=== PATIENT | male | born 1955 | race Caucasian/White ===

== ENCOUNTER 2023-01-15 12:20 | Inpatient (IN) | payer MEDICARE, MEDICAID, SELFPAY ==
[2023-01-10 15:20] VITALS: BMI 28.6
--- NOTE | 2023-01-15 06:00 | DI.RAD.S_ITS ---
PROCEDURE: XR PELVIS 1-2V INDICATIONS: prosthesis placement TECHNIQUE: 1 view of the lower pelvis acquired. COMPARISON: [facility], CR, XR PELVIS WITH BILATERAL LATERAL HIPS, 11/02/2022, 14:42. [facility], CR, XR HIP W PEL IF DONE RT 2V, 01/15/2023, 18:01. FINDINGS: Bones: Patient is status post temporary right hip arthroplasty, with hardware components in expected positions. The hip joint appears congruent. The visualized bony structures appear intact. Soft tissues: Overlying postoperative changes are noted. No suspicious soft tissue densities. IMPRESSION: Expected appearance of the temporary right hip arthroplasty. Dictated by: Anastacio Law M.D. on 01/16/2023 at 8:42 Approved by: Anastacio Law M.D. on 01/16/2023 at 8:44
[2023-01-15] MEDS: ACETAMINOPHEN 325 MG TABLET 975 MG PO (12:51)
[2023-01-15] MEDS: CELECOXIB 200 MG CAPSULE PO (12:51)
[2023-01-15] MEDS: PREGABALIN 75 MG CAPSULE PO (12:52)
[2023-01-15 13:03] VITALS: BMI 28.6
[2023-01-15 13:15] LABS: COVID19 -Nasal RAPID Negative (Negative)
[2023-01-15] MEDS: ALBUTEROL/IPRATROPIUM 3 ML AMPUL INH (13:18)
[2023-01-15] MEDS: MIDAZOLAM 2 MG/2 ML VIAL (13:18)
[2023-01-15 13:20] VITALS: BP 177/106; PULSE 98; RESP 22; TEMP 36.6; O2SAT 98
[2023-01-15] MEDS: VANCOMYCIN 1,000 MG/200 ML PIGGYBACK 200 MG IV (13:57)
[2023-01-15] MEDS: LACTATED RINGERS 1,000 ML 42 ML IV ×2 (14:00→16:23)
--- NOTE | 2023-01-15 14:44 | SUR.OPER ---
Lateral on padded OR bed. Gel axillary roll. Arms secured on padded armboard with pillow supporting top arm. Padded hip positioner braces x4 - anterior and posterior chest and pelvis. Additional gel pad used anterior pelvis. Gel pad under bottom leg from knee to foot and secured with tape over sheet.
--- NOTE | 2023-01-15 15:04 | PM.PREOP ---
Pre-operative Note COVID-19 COVID-19 status: Negative Interval Note History & Physical reviewed/Exam performed by Physician: Yes Changes to H&P: No
[2023-01-15] MEDS: CEFAZOLIN 2 GM/100 ML PREMIX 100 ML IV ×2 (15:15→23:24)
[2023-01-15] MEDS: TRANEXAMIC ACID 1,000 MG VIAL 1000 MG INJ ×2 (15:30→17:25)
--- NOTE | 2023-01-15 15:32 | CM.IDA ---
Initial DCP Assessment Patient is 67 y/o male who presents to PACU for scheduled right total hip arthoplasty with Dr. Arnold. Per EMR, patient has reported complaints of left wrist and hand pain, patient has hx of injuries in lumbar spine and hip. Patient has hx of anoxic Brain injury. Patient's PCP is Dr. Navjot Cheney, Patient has [facility] MCR and Medicaid insurance. Patient has hx of Arthritis, COPD, Depression, Hypertension, Scoliosis, AFib, Anoxic brain injury, drug abuse and CAD RETORT FURNACE OPERATOR enters PACU per Dr. Arnold's request prior to surgery to meet with patient and patient's guardian. Present in PACU is patient and guardian Bhumi Valentin (Ph. # [phone]) Patient presents as A/Ox3, endorsing pain and anticipating surgery. It is reported that patient resides at [facility] in [place]. Contracts Advisor at [facility] is Rissa and can be reached at (Ph. # [phone]). It is reported that patient has been requiring a wheelchair for the last year but owns a FWW. Patient receives assistance with cleaning, medication, showering and laundry. RETORT FURNACE OPERATOR requests for documentation for EMR regarding patient's guardianship records, Bhumi reports she has records on her phone and can email them. RETORT FURNACE OPERATOR informs DCP, DCP to call guardian tomorrow. Guardian preference is SNF rehab in [place], with first choice of [facility] rehab. If HH is recommended preference is [facility]. RETORT FURNACE OPERATOR reviews this with Dr. Arnold, she indicates that patient will most likely requiring SNF rehab after PT/OT eval. Plan: Patient pending surgery with Dr. Arnold, patient to be admitted to room 210, pending OT/PT eval, plan SNF rehab in [facility] vs. [facility] with HH. F/u with Guardian and [facility]. ALLYSON Villanueva Discharge Planning/Care Management CM Discharge Assessment Start: 01/15/23 15:26 Freq: Status: Active Protocol: Document 01/15/23 15:26 LN (Rec: 01/15/23 15:31 LN [id number]) Discharge Planning Assessment Assigned Field Care Coordinator ALLYSON Barraza DPOA/Assigned Designee Name Guardian- Bhumi Valentin Contact Information [phone] Advance Directives? No History Provided By Patient,Medical Record Has Patient been admitted in last 30 No days? Prior Living Arrangements Assisted Living Household Members none Type of transportation used prior to Relies on Others admit Facility Name Admitted From: [place] Willing to Return to Facility? Yes: if PT recommends HH Independent with ADL's No Is patient alert and oriented? Yes Needs Assistance With Bathing,Managing Medications, Home Chores / Shopping DME Already Rented / Owned Wheelchair,FWW / Walker Comment Patient has primarily used wheelchair in the last year Patient/Family Preference [facility] Comment Primary preference SNF rehabs in [place], 1st choice is [facility]. If HH is recommended, preference is [facility]. Discharge Plan [facility] SNF/HH Preference [facility] in [facility] or any SNF rehab in [facility] Review Status In Process Please Provide Date Initial DC 01/15/23 Assessment Was Performed Pre-Anesthesia Assessment Start: 01/10/23 15:20 Freq: Status: Active Protocol: Document 01/10/23 15:20 CAB (Rec: 01/10/23 15:26 CAB [id number]) Pre-Anesthesia Assessment Patient Information Reviewed Via Chart Review Diagnostic Results BMP/CMP,CBC Comment Outside labs 01/11/23 Primary Care Provider Navjot Cheney Comment PCP clearance form 10/22/22 and visit 01/11/23 scanned Medical Clearance Received Yes Seen Specialist in Last 12 Months Yes Specialist Seen Orthopedist,Sleep specialist Comment Sleep visit 10/16/22 scanne Primary Language Serbian Engineering Operations Leader Required No Height 170.18 cm Weight 83.007 kg Body Mass Index (BMI) 28.6 Barriers to Learning Developmental delay Anesthesia Review Requested Yes: Surgeon requested re: Multiple medical problems Alcohol Intake Frequency Other: None Smoking Status Former smoker how long ago did patient quit smoking Quit approx 10 years ago Pain Present Pain Reported Musculoskeletal Symptoms Joint Pain Patient is completely paralyzed or No completely immobile Mental Status Oriented to own ability Currently Taking a Beta [place] Yes: Metoprolol Anti-Coagulant Therapy Yes: Xarelto-advised to hold 5 days per nurse @ living facility per surgeon Hx Pacemaker/ICD No Pacemaker Rep Required? No Urinary Catheter Present No Hx Urinary Self Catheterization No Diabetes No HgbA1C 5.8 Date 10/30/22 Marital Status Single Current Living Arrangements Assisted Living Comment [facility] Caregiver,Other Patient Discharge Plan Description [facility]/Rehab
[2023-01-15] MEDS: BUPIVACAINE 0.25% (PF) 60 ML, EPINEPHrine 0.3 MG INJ (15:50)
[2023-01-15] MEDS: BUPIVACAINE LIPOSOME 266 MG/20 ML VIAL INJ (15:51)
--- NOTE | 2023-01-15 17:53 | P.OP_ITS ---
Operative Date/Time/Diagnoses Date of procedure: 01/15/23 Time of procedure: 15:30 Pre-op diagnosis: Severe right hip AVN Post-op diagnosis: same Procedure & Clinicians Procedure: Right total hip arthroplasty, posterior Same procedure as scheduled: Yes Indications: The patient has had progressively worsening right hip pain with radiographic changes consistent with arthritis. Non-operative management has failed and the patient has requested total hip replacement. The risks, benefits and alternatives to surgery were discussed with the patient prior to proceeding. Risks discussed included, but were not limited to, failure to relieve pain, leg length discrepancy, dislocation, stiffness, infection, nerve damage, deep venous thrombosis, pulmonary embolism, stroke, coma, heart attack, permanent paralysis and , as well as the potential need for eventual revision of the prosthetic. Surgeon: Alexus Arnold Advanced Practice Nurse Psychotherapist: Daphney Espinosa Anesthesia Type: General and Spinal Operative Notes Findings: Severe left hip AVN, various soft acetabulum, significant hip flexion contracture preoperatively, adequate stability Closure Type: primary Specimen(s): none sent Prosthetic devices, grafts, tissues, transplants, or devices: Arnold and nephew size 60 R3 cup, neutral poly liner for 40 mm head, size 16 synergy high offset, 40 +0 Oxinium femoral head,two 6.5 mm screws Blood products transfused: none Procedure in detail: The patient was seen in the pre-operative area, where the patient identified the right hip as the operative site and this was marked with my initials. The patient received pre-operative antibiotics and was taken to the operating room and placed on the operative table in the left lateral decubitus position after satisfactory anesthesia. A cash specialist out was performed. The right leg was prepared from the ankle to the iliac crest with ChloroPrep in the usual fashion and draped through sterile drapes. The hip was approached through an approximately 20 cm incision centered over the greater trochanter and curving gently posteriorly as it went proximally. This was carried sharply to the fascia eladio, which was divided and retracted with a self retaining retractor. The trochanteric bursa was excised with care being taken to avoid the sciatic nerve, which was identified and protected throughout the case. The short external rotators were incised and the capsulomuscular flap was raised and tagged for later repair. The hip was dislocated, and a femoral neck osteotomy performed approximately 15 mm above the lesser trochanter. Retractors were placed around the femur. The canal was opened with a box cutting osteotome, followed by a T handled reamer and a lateralizing reamer. The chili pepper broach was then used, followed by sequential broaching until there was stability of the broach in the femur. He had a large canal in the AP plane. We did have also the anthology a and the Synergy available. Retractors were placed to expose the acetabulum. The labrum and central soft tissues were removed. Reaming was performed initially going up in 2 mm increments, then 1 mm increments until good bite was obtained with an odd sized reamer. The cup 1 mm larger than the last reamer was then inserted using the appropriate anteversion guides. It was further stabilized with 2 screws. A trial neutral liner was placed. The broach was placed in the canal. A trial head and neck were then placed and the hip relocated and checked for leg length and stability. An intraoperative film confirmed the component position and no evidence of fracture. The patient was stable in the position of sleep, of squatting, and could be put through a range of motion with 45 degrees internal rotation without dislocation. I checked the stability of the broach. It had no rotational stability. It did have some axial stability. I then looked at going up a size or 2 with the anthology a. I was able to go up 2 sizes with the anthology a but it still did not have good rotational stability. He had fairly poor quality bone. I thought we should probably switch to the Synergy. We then carefully reamed up with a Synergy and eventually got in a 16 mm stem. He had a very tight hip and significant synovitis and some instability. I did trial reduction with standard offset, extended offset with a 0 and with a +4. We were able to achieve good stability with extended offset. At 90 degrees flexion, internal rotation to 80? was possible before dislocation. This was felt to be satisfactory and the appropriate components were opened, and the trials were removed. The acetabular liner was impacted into position. The final stem was then impacted into the prepared femoral canal. A brief Betadine soak was performed while trialing with head options. The hip was meticulously irrigated with normal saline. Finally the femoral head was impacted onto the stem. The acetabulum was cleared of all material and the hip relocated one final time. The capsulomuscular flap was then repaired to the greater trochanter though an awl hole using the tag sutures. The short external rotators were repaired with a nonabsorbable suture. The fascia eladio was closed with Vicryl. The subcutaneous layer was closed with barbed sutures and SteriStrips. A Catalino dressing was applied and the patient was taken to recovery having tolerated the procedure well. Complications: none Post-operative Condition: stable Disposition: Acute Care Plan for aftercare: The patient will be maintained on a standard total hip replacement protocol with weight bearing as tolerated and posterior hip precautions. The patient will receive Xarelto and sequential compression devices for DVT prophylaxis. The patient will be discharged home when safe for the home environment.
[2023-01-15 18:00] VITALS: BP 127/80; PULSE 93; RESP 21; TEMP 36.3; O2SAT 94
--- NOTE | 2023-01-15 18:00 | DI.RAD.S_ITS ---
PROCEDURE: XR HIP W PEL IF DONE RT 2V INDICATIONS: RIGHT TOTAL HIP TECHNIQUE: AP pelvis and lateral view of the right hip acquired. COMPARISON: [facility], [facility], XR PELVIS 1-2V, 01/15/2023, 16:27. FINDINGS: Bones: Patient is status post right hip arthroplasty, with hardware components in expected positions. The hip joint appears congruent. The visualized bony structures appear intact. Soft tissues: Overlying postoperative changes are noted. No suspicious soft tissue densities. IMPRESSION: Status post right hip arthroplasty. Dictated by: Mary Kay Roblero M.D. on 01/16/2023 at 9:05 Approved by: Mary Kay Roblero M.D. on 01/16/2023 at 9:05
[2023-01-15 18:05] VITALS: BP 111/81; PULSE 94; RESP 22; TEMP 37.1; O2SAT 94
[2023-01-15 18:11] VITALS: BP 120/71; PULSE 94; RESP 20; TEMP 37.1; O2SAT 93
[2023-01-15] MEDS: OXYCODONE/ACETAMINOPHEN 5/325 TABLET 1 TAB PO ×2 (18:16→23:25)
[2023-01-15 18:20] VITALS: BP 129/86; PULSE 90; RESP 14; TEMP 36.9; O2SAT 94
[2023-01-15 18:45] VITALS: BMI 28.6
[2023-01-15] MEDS: LACTATED RINGERS 1,000 ML 100 ML IV (19:32)
[2023-01-15] MEDS: ACETAMINOPHEN 325 MG TABLET 650 MG PO (19:42)
[2023-01-15] MEDS: IBUPROFEN 400 MG TABLET PO ×2 (19:42→23:25)
[2023-01-15 20:52] VITALS: BP 131/83; PULSE 85; RESP 19; TEMP 36.6; O2SAT 93
[2023-01-15] MEDS: DOCUSATE 100 MG CAPSULE PO (21:16)
[2023-01-15] MEDS: ALBUTEROL 2.5 MG/3 ML NEB (ADULT) INH (22:58)
[2023-01-15] MEDS: diphenhydrAMINE 50 MG/ML VIAL 25 MG IV (23:24)
[2023-01-16] VITALS (7 sets, daily range): BP systolic 125–142; BP diastolic 80–89; PULSE 86–104; RESP 18–22; TEMP 36.2–37.3; O2SAT 93–98
[2023-01-16] MEDS: ACETAMINOPHEN 325 MG TABLET 650 MG PO ×3 (01:42→18:11)
[2023-01-16] MEDS: IBUPROFEN 400 MG TABLET PO ×5 (03:43→18:11)
[2023-01-16] MEDS: ALBUTEROL 2.5 MG/3 ML NEB (ADULT) INH (03:47)
[2023-01-16] MEDS: diphenhydrAMINE 50 MG/ML VIAL 25 MG IV ×2 (03:48→18:57)
[2023-01-16] MEDS: OXYCODONE/ACETAMINOPHEN 5/325 TABLET 1 TAB PO (05:59)
[2023-01-16] MEDS: CEFAZOLIN 2 GM/100 ML PREMIX 100 ML IV (06:26)
[2023-01-16 06:29] LABS: Hematocrit 38.1 % (41-53); Hemoglobin 13.1 g/dL (13.5-17.5)
--- NOTE | 2023-01-16 06:47 | P.PN_ITS ---
Subjective Subjective Date Patient Seen: 01/16/23 Time Patient Seen: 06:47 Interval history: Sitting up in bed, good pain control, complaining mostly about left hand pain. Eating and voiding without difficulty. Has not yet been evaluated by PT. Exam Vital Signs (past 8 hours): - 01/16/23 01:47 01/16/23 03:14 01/16/23 03:28 Temperature 97.7 F 97.1 F L Pulse Rate 88 95 H Respiratory Rate 22 20 Blood Pressure 134/89 142/85 H Pulse Oximetry 96 95 Oxygen Delivery Method Nasal Cannula Oxygen Flow Rate 2 Fraction of Inspired Oxygen 01/16/23 03:47 Temperature Pulse Rate 86 Respiratory Rate 22 Blood Pressure Pulse Oximetry 98 Oxygen Delivery Method Nasal Cannula Oxygen Flow Rate 2 Fraction of Inspired Oxygen 28 Fraction of Inspired Oxygen 28 SaO2/FiO2 Ratio 350 Oxygen Delivery Method Nasal Cannula Oxygen Flow Rate 2 Narrative Exam Narrative: 5/5 strength in hip flexors, quadriceps, hamstrings, DF, PF, EHL on right. Sensation to light touch intact throughout RLE. Calf soft, compressible, nontender and without palpable cords or masses. Objective Labs 01/16/23 06:16 Labs: Laboratory Results - last 24 hr 01/15/23 01/16/23 13:00 06:16 Hgb 13.1 L Hct 38.1 L SARS-CoV-2 (PCR) Negative [facility] Medical History (Updated 01/16/23 @ 07:49 by Breana Woods PA-C) Anoxic brain damage Asthma Atrial fibrillation and flutter CAD (coronary artery disease) COPD (chronic obstructive pulmonary disease) GERD (gastroesophageal reflux disease) History of developmental delay HLD (hyperlipidemia) HTN (hypertension) Melena Osteoarthritis PAF (paroxysmal atrial fibrillation) Proctocolitis (11/2022) Suspected sleep apnea TBI (traumatic brain injury) Surgical History (Updated 01/16/23 @ 07:46 by Breana Woods PA-C) History of nasal surgery Hx of hernia repair Social History household members: none Smoking Status: Former smoker alcohol intake: never Assessment & Plan Post-op Assessment and plan (1) S/P total hip arthroplasty: Assessment and Plan narrative: 1) Pt chronically anticoagulated w/ Xarelto d/t a fib; this has been scheduled to restart on 01/18/2023. This should be adequate for postop VTE prophylaxis. 2) PT to eval and treat. 3) H/o anoxic brain injury, resides at an assisted living facility. Will require SNF placement. (2) Acute postoperative anemia due to expected blood loss: Assessment and Plan narrative: Asymptomatic, no intervention needed at this time. Postoperative Procedures: Procedures Operation Date: 01/15/23 14:15 Actual Procedure Side Surgeon p Total Hip Arthroplasty Right Alexus Arnold MD Postoperative day: 1 Quality VTE Deep Vein Thrombosis/Pulmonary Embolism Present on Admission: No
[2023-01-16] MEDS: ALBUTEROL/IPRATROPIUM 3 ML AMPUL INH ×3 (07:30→20:13)
[2023-01-16] MEDS: BUDESONIDE 0.5 MG/2 ML NEB INH ×2 (07:30→20:13)
[2023-01-16] MEDS: DOCUSATE 100 MG CAPSULE PO ×2 (08:41→21:12)
[2023-01-16] MEDS: OXYCODONE IR 5 MG TABLET PO ×2 (08:41→12:46)
--- NOTE | 2023-01-16 11:19 | CM.DPC ---
Addendum entered by Rhoda Hickey R.N. 01/16/23 15:16: Faxed over referrals to [facility] as well, as no response from other facilities as of yet. Guardian has not yet called back. She may have already been in contact with [facility]. P.T. does feel that patient would benefit from group home before returning to his assisted living facility. Addendum entered by Rhoda Hickey R.N. 01/16/23 14:09: Spoke to Patrick, he and , Bhumi, are patient's guardian. Let him know that it is not certain that patient can go to [facility], they have been left several messages, no response. He indicated that Bhumi is having minor surgery today, but will call back. Will also need to see if she can fax over guardian paperwork. Faxed referrals over to [facility], [facility], and [facility]. Other option would be to see if he can return to his assisted living facility Original Note: DCP Cont: SIRI Barraza, had performed initial assessment. Confirmed that this patient resides in [facility]. Dr. Arnold had stopped by this office yesterday, confirmed that there is a guardian involved, was with patient yesterday. Christi, confirmed that guardian was hopeful for [facility] in [place]. Patient has not yet worked with P.T, would need notes in order to send, since auth would be needed. Patient has history of anoxic brain injury, lumbar spine and hip. Called [facility], left a message with Oksana in admissions, asked her to call back, regarding bed availability, and if they are contracted with insurance. Called and left messages also with: [facility]: message [facility]: message [facility]: message [facility]: message. [facility]: they are in stop placement [place]: will call back to see if male bed is available. Did not yet send referrals, wanted to confirm bed availability and if they are contracted with insurance. P: DCP to continue to follow. Working on DC plan, to see availabilities, will follow up. Will see how patient does with P.T. Rhoda Hickey RN/Russian Language Instructor
--- NOTE | 2023-01-16 12:00 | PT.IIE ---
Addendum entered and electronically signed by Oksana Arnold PT 01/18/23 08:29: Addended to correct diagnosis to s/p R MARIA ALEJANDRA. 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) Unspecified intracranial injury with loss of consciousness status unknown, initial encounter (01/15/23) Presence of unspecified artificial hip joint (01/15/23) Surgery Performed Operation Date: 01/15/23 14:15 Actual Procedures p Total Hip Arthroplasty(Right) - Alexus Arnold MD Surgical History (Last Updated 01/11/23 @ 12:40 by Johanna Peterson, RN) History of nasal surgery Hx of hernia repair Medical History (Last Updated 01/11/23 @ 13:35 by Johanna Peterson RN) Anoxic brain damage Asthma Atrial fibrillation and flutter CAD (coronary artery disease) COPD (chronic obstructive pulmonary disease) GERD (gastroesophageal reflux disease) History of developmental delay HLD (hyperlipidemia) HTN (hypertension) Melena Osteoarthritis PAF (paroxysmal atrial fibrillation) Proctocolitis (11/2022) Suspected sleep apnea TBI (traumatic brain injury) Physical Therapy Inpatient Evaluation/Re-Eval M1 PT/OT-IP Prior Functional Status Start: 01/16/23 11:44 Freq: NEEDED Status: Active Protocol: Document 01/16/23 11:44 ES (Rec: 01/16/23 12:00 ES [id number]) Medical Review Prior Functional Status Medical History Reviewed Yes Communication WFL Mobility and Gait Needed assist for all mobility . Was primarily using w/c, scooting with feet independently, but needed help with transfers. Activities of Daily Living and IADL's Needed assist for all ADL's. Prior Functional Level (Other details) Used urinal mostly, but could transfer to toilet with assist . 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 M2 PT-IP Current Condition Start: 01/16/23 11:44 Freq: NEEDED Status: Active Protocol: Document 01/16/23 11:44 ES (Rec: 01/16/23 12:00 ES [id number]) Physical Therapy Current Condition Current Condition Evaluation Date 01/16/23 Treatment Diagnosis s/p L posterior MARIA ALEJANDRA Onset Date 01/15/23 M3 PT-IP Subjective Start: 01/16/23 11:44 Freq: NEEDED Status: Active Protocol: Document 01/16/23 11:44 ES (Rec: 01/16/23 12:00 ES [id number]) Subjective Physical Therapy Visit Type Type Initial Evaluation Visit Start Time 10:15 Visit Stop Time 11:05 Total Visit Minutes 50 Physical Therapy Visit Comments Patient Comments Patient alert in bed. Agreeable to work with PT. Requested to use urinal. Reported his L knee bothers him and seems swollen. Therapy Pain Assessment Pain When Pain Assessed During Mobility Pain Present Pain Present Pain Reported Location Right Hip Intensity 6 Scale Used Suárez-Ferrer (Faces) Pain Management Techniques Apply Cold,Distraction,Re- positioning M4 PT-IP Mobility and Gait Start: 01/16/23 11:44 Freq: NEEDED Status: Active Protocol: Document 01/16/23 11:44 ES (Rec: 01/16/23 12:00 ES [id number]) PT-Bed Mobility Assessment Supine to Sit Supine to Sit Moderate Assistance Scooting Scooting to Edge of Bed Moderate Assistance PT-Transfer Assessment Sit to and From Stand Sit to and from Stand Moderate Assistance,Use of Upper Extremities Equipment Transfer Assistive Device Gait Belt,Front Wheeled Walker Transfers Transfer Destination Chair Transfer Technique Squat Pivot Transfer Ability Level of Assist Moderate Assistance,Use of Upper Extremities Comments Mobility Comments Performed squat pivot transfer bed to recliner toward L side . Performed sit to stand from recliner with FWW x2 for slade care. Able to stand for slade care with FWW with SBA. Cued for hand placement and for hip precautions. Gait Assessment Comments Gait Comments Did not attempt; patient has been non-ambulatory for >1 year. Will assess for appropriateness for ambulation at future visit. PT-Balance Assessment Sitting Balance and Reactions Static Sitting Balance Ability Good Dynamic Sitting Balance Ability Fair Standing Balance and Reactions Static Standing Balance Ability Fair Dynamic Standing Balance Ability Poor Device Used FWW M5 PT-IP Objective Assessments Start: 01/16/23 11:44 Freq: NEEDED Status: Active Protocol: Document 01/16/23 11:44 ES (Rec: 01/16/23 12:00 ES [id number]) Orientation Orientation/Cognition Level of Alertness Alert Orientation Name,Age,Birthday,Month,Year, Place Language Function Ability No Deficits Noted Safety Awareness Decreased Safety Awareness Memory Description Short Term Impaired Gross Range of Motion Upper Extremity ROM Assessment Within Functional Limits Lower Extremity ROM Assessment Bilaterally Impaired Impairments R hip limited 2/2 precautions. R knee appears to bed contracted to ~20 degrees. B ankle mobility limited. Strength Upper Extremity Strength Assessment Within Functional Limits Lower Extremity Strength Assessment Bilaterally Impaired Comments Strength Comments R LE grossly 3-/5. L LE grossly 4/5. Coordination Assessment Gross Coordination Gross Coordination WNL M6 PT-IP Treatment Start: 01/16/23 11:44 Freq: NEEDED Status: Active Protocol: Document 01/16/23 11:44 ES (Rec: 01/16/23 12:00 ES [id number]) Physical Therapy Treatment Exercises Exercises Ankle Pumps,Gluteal Sets,Quad Sets,Heel Slides Education Education Provided Precautions,Weight Bearing Status,Post-Op Packet,Safety M7 PT-IP Assessment and Plan Start: 01/16/23 11:44 Freq: NEEDED Status: Active Protocol: Document 01/16/23 11:44 ES (Rec: 01/16/23 12:00 ES [id number]) PT Summary Assessment and Plan Potential Rehabilitation Potential Fair Status of Condition at Evaluation Stable Summary Impairments Pain,ROM,Strength,Balance, Cognition,Bed Mobility, Transfers,Gait Assessment Summary Patient is a 67 year old male s/p R MARIA ALEJANDRA who presents with impaired functional mobility due to the above problems. He was able to perform ex's though had difficulty due to weakness. He tolerated bed mobility and transfers with mild increase in pain. He required mod A for mobility, and was not safe to progress ambulation this visit due to increased fall risk. He has been non-ambulatory at baseline for some time. His situation is complicated by presence of learning disability, decreased safety awareness, and impaired memory for following precautions. He will benefit from further skilled therapy to increase safety and independence with mobility. Recommend SNF for rehab due to increased level of care currently required, with the goal of returning to [facility] with higher level of function. Goals Bed Mobility Goal Standby Assistance Transfer Goal Standby Assistance Gait Goal Contact Guard Assistance Gait Distance 50 Other Goals Patient will be able to recall posterior hip precautions without cues. Patient will be able to propel self in w/c with UE's/LE's without breaking hip precautions without cues. Days to Meet Goals 3 Frequency of Treatment Frequency Of Treatment Twice a Day Treatment Plan Physical Therapy Treatment Plan Bed Mobility Training,Transfer Training,Gait Training, Therapeutic Exercise,Balance Retraining,Post Op Education, Discharge Planning,Hot or Cold Pack Other Recommendations and Next Treatment Work on transfers, possible Focus progression to gait with FWW, review precautions and HEP. Precautions Posterior Hip Precautions No Hip Flexion > 90 degrees,No Hip Internal Rotation,No Hip Adduction Weight Bearing Status Weight Bearing Status Weight Bear as Tolerated Recommendations To Nursing Amount of Assist Needed 1 Person Assist Discharge Recommendations PT Discharge Recommendations SNF Rehab Transportation Needs at Discharge Wheelchair/Cabulance
[2023-01-16] MEDS: OXYCODONE IR 10 MG TABLET PO ×3 (15:00→21:12)
--- NOTE | 2023-01-16 15:35 | PT.IPTN ---
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) Unspecified intracranial injury with loss of consciousness status unknown, initial encounter (01/15/23) Presence of unspecified artificial hip joint (01/15/23) Surgery Performed Operation Date: 01/15/23 14:15 Actual Procedures p Total Hip Arthroplasty(Right) - Alexus Aronld MD Physical Therapy Treatment Note M2 PT-IP Current Condition Start: 01/16/23 11:44 Freq: NEEDED Status: Active Protocol: Document 01/16/23 11:44 ES (Rec: 01/16/23 12:00 ES [id number]) Physical Therapy Current Condition Current Condition Evaluation Date 01/16/23 Treatment Diagnosis s/p L posterior MARIA ALEJANDRA Onset Date 01/15/23 M3 PT-IP Subjective Start: 01/16/23 11:44 Freq: NEEDED Status: Active Protocol: Document 01/16/23 16:46 TS (Rec: 01/16/23 17:04 TS [id number]) Subjective Physical Therapy Visit Type Type Treatment Note Visit Start Time 15:35 Visit Stop Time 16:00 Total Visit Minutes 25 Number of EMU FARM WORKER Visits 1 Physical Therapy Visit Comments Patient Comments Pt found resting in chair, reports feeling sore in hip, agreeable to PT session. Therapy Pain Assessment Pain When Pain Assessed During Mobility Pain Present Pain Present Pain Reported M4 PT-IP Mobility and Gait Start: 01/16/23 11:44 Freq: NEEDED Status: Active Protocol: Document 01/16/23 16:46 TS (Rec: 01/16/23 17:04 TS [id number]) PT-Bed Mobility Assessment Sit to Supine Sit to Supine Minimal Assistance PT-Transfer Assessment Equipment Transfer Assistive Device Gait Belt Transfers Transfer Destination Chair Transfer Technique Squat Pivot Transfer Ability Level of Assist Minimal Assistance,Use of Upper Extremities Comments Mobility Comments Pt found resting in chair, agreeable to PT session. Pt recalled 0/3 posterior hip precautions. Pt performed post -op ex ankle pumps, quad sets, glute sets and heel slides. Squat pivot transfer to strong side Janie, provided cues BUE support and sequencing. Sit to supine Janie for LEs into bed, provided cues for handrail assist and maintaining hip precautions. Pt Scooted to [facility] SBA with handrail assist. Pt was left in bed with call light nearby, RN notified. Gait Assessment Comments Gait Comments Did not attempt; patient has been non-ambulatory for >1 year. Will assess for appropriateness for ambulation at future visit. PT-Balance Assessment Sitting Balance and Reactions Static Sitting Balance Ability Good Dynamic Sitting Balance Ability Fair Comments Other Balance Tests/Deviations/Treatment Did not attempt standing this : session. M5 PT-IP Objective Assessments Start: 01/16/23 11:44 Freq: NEEDED Status: Active Protocol: Document 01/16/23 11:44 ES (Rec: 01/16/23 12:00 ES [id number]) Orientation Orientation/Cognition Level of Alertness Alert Orientation Name,Age,Birthday,Month,Year, Place Language Function Ability No Deficits Noted Safety Awareness Decreased Safety Awareness Memory Description Short Term Impaired Gross Range of Motion Upper Extremity ROM Assessment Within Functional Limits Lower Extremity ROM Assessment Bilaterally Impaired Impairments R hip limited 2/2 precautions. R knee appears to bed contracted to ~20 degrees. B ankle mobility limited. Strength Upper Extremity Strength Assessment Within Functional Limits Lower Extremity Strength Assessment Bilaterally Impaired Comments Strength Comments R LE grossly 3-/5. L LE grossly 4/5. Coordination Assessment Gross Coordination Gross Coordination WNL M6 PT-IP Treatment Start: 01/16/23 11:44 Freq: NEEDED Status: Active Protocol: Document 01/16/23 16:46 TS (Rec: 01/16/23 17:04 TS [id number]) Physical Therapy Treatment Exercises Exercises Ankle Pumps,Gluteal Sets,Quad Sets,Heel Slides Education Education Provided Precautions,Weight Bearing Status,Post-Op Packet,Safety Other Treatments Other Treatment Performed Pt needs heavy cueing of precautions, Pt states he will not remember. M7 PT-IP Assessment and Plan Start: 01/16/23 11:44 Freq: NEEDED Status: Active Protocol: Document 01/16/23 16:46 TS (Rec: 01/16/23 17:04 TS [id number]) PT Summary Assessment and Plan Potential Rehabilitation Potential Fair Status of Condition at Evaluation Stable Summary Impairments Pain,ROM,Strength,Balance, Cognition,Bed Mobility, Transfers,Gait Assessment Summary Jakob recalled 0/3 posterior hip precautions prior to session, he requires consistent cueing of hip precautions throughout session and demonstrates decreased safety awareness. He progressed his squat pivot transfer to Janie this session, requires cueing for sequencing. He requires refocusing to stay on task and can follow single step instructions ~90% of the time. PT is recommending SNF at this time to progress bed mobility, transfers and gait. Pt lives in assisted living facility and will need to be more Ind before returning home . Goals Bed Mobility Goal Standby Assistance Transfer Goal Standby Assistance Gait Goal Contact Guard Assistance Gait Distance 50 Other Goals Patient will be able to recall posterior hip precautions without cues. Patient will be able to propel self in w/c with UE's/LE's without breaking hip precautions without cues. Days to Meet Goals 3 Frequency of Treatment Frequency Of Treatment Twice a Day Treatment Plan Physical Therapy Treatment Plan Bed Mobility Training,Transfer Training,Gait Training, Therapeutic Exercise,Balance Retraining,Post Op Education, Discharge Planning,Hot or Cold Pack Other Recommendations and Next Treatment Work on transfers, possible Focus progression to gait with FWW, review precautions and HEP. Precautions Posterior Hip Precautions No Hip Flexion > 90 degrees,No Hip Internal Rotation,No Hip Adduction Weight Bearing Status Weight Bearing Status Weight Bear as Tolerated Recommendations To Nursing Amount of Assist Needed 1 Person Assist Discharge Recommendations PT Discharge Recommendations SNF Rehab Transportation Needs at Discharge Wheelchair/Cabulance
[2023-01-16] MEDS: TRAZODONE 50 MG TABLET PO (21:12)
--- NOTE | 2023-01-16 22:25 | DI.RAD.S_ITS ---
PROCEDURE: XR PELVIS 1-2V INDICATIONS: Confirm placement TECHNIQUE: 1 view of the lower pelvis acquired. COMPARISON: [facility], , XR PELVIS 1-2V, 01/15/2023, 16:27. FINDINGS: Bones: Patient is status post right hip arthroplasty, with hardware components in expected positions. The hip joint appears congruent. Severe degeneration of the left hip redemonstrated with subchondral sclerosis and prominent subchondral cystic changes superiorly in the femoral head. The visualized bony structures appear intact. Soft tissues: Overlying postoperative changes are noted including periarticular soft tissue gas around the right hip. No suspicious soft tissue densities. IMPRESSION: 1. Expected postsurgical changes status post right hip arthroplasty. Dictated by: Brian Bear M.D. on 01/16/2023 at 23:04 Approved by: Brian Bear M.D. on 01/16/2023 at 23:05
[2023-01-16] MEDS: diazePAM 5 MG TABLET PO (22:36)
[2023-01-17] VITALS (11 sets, daily range): BP systolic 84–140; BP diastolic 56–89; PULSE 66–104; RESP 18–22; TEMP 36.1–36.8; O2SAT 20–98
[2023-01-17] MEDS: OXYCODONE IR 10 MG TABLET PO ×4 (00:57→13:08)
[2023-01-17] MEDS: HYDROMORPHONE 0.5 MG INJ IV ×2 (01:40→05:29)
[2023-01-17] MEDS: ACETAMINOPHEN 325 MG TABLET 650 MG PO ×4 (01:40→19:42)
[2023-01-17] MEDS: ALBUTEROL 2.5 MG/3 ML NEB (ADULT) INH ×2 (04:24→22:43)
[2023-01-17] MEDS: IBUPROFEN 400 MG TABLET PO ×5 (05:38→22:27)
--- NOTE | 2023-01-17 06:01 | PC.NURSE ---
~2100 pt reported cramping/pain/burning in r hip/thigh and was unable to fully extend R leg. +1 pitting edema noted in BL feet and ankles. + CMS and +2 pedal pulses distal to op. site. Muscle spasms visible above knee, crepitus palpable around R knee. Applied heat and medicated (see MAR) ~2200 Dr Arnold contacted and hip x-ray obtained, confirming correct placement & 5 mg diazepam ordered (see MAR). Patient was able to sleep for 2-3 hours. ~0100 Pt woke in 8-10 pain. Medicated with 10 mg Oxy (see Mar) and pain was not relieved within the hour, so pt was medicated again with 0.5 mg IV dilaudid (see MAR), feet continue to have +1 pitting edema, + CMS and +2 pedal pulses. Patient especially complaining of the pain bilaterally in his groin, from hip to knee. ~0430 repeated same as above. feet now have +2 pitting edema, + CMS and +2 pedal pulses.
[2023-01-17] MEDS: hydrOXYzine pamoate 25 MG CAPSULE PO ×3 (07:50→22:27)
--- NOTE | 2023-01-17 08:10 | PT.IPTN ---
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) Unspecified intracranial injury with loss of consciousness status unknown, initial encounter (01/15/23) Presence of unspecified artificial hip joint (01/15/23) Surgery Performed Operation Date: 01/15/23 14:15 Actual Procedures p Total Hip Arthroplasty(Right) - Alexus Arnold MD Physical Therapy Treatment Note M2 PT-IP Current Condition Start: 01/16/23 11:44 Freq: NEEDED Status: Active Protocol: Document 01/17/23 07:52 SP (Rec: 01/17/23 11:58 SP [id number]) Physical Therapy Current Condition Current Condition Evaluation Date 01/16/23 Treatment Diagnosis s/p L posterior MARIA ALEJANDRA Onset Date 01/15/23 M3 PT-IP Subjective Start: 01/16/23 11:44 Freq: NEEDED Status: Active Protocol: Document 01/17/23 07:52 SP (Rec: 01/17/23 11:58 SP [id number]) Subjective Physical Therapy Visit Type Type Treatment Note Visit Start Time 07:52 Visit Stop Time 08:10 Total Visit Minutes 18 Notes Pt maintained SaO2 mid 90s. Number of RISK MANAGEMENT MANAGER Visits 2 Physical Therapy Visit Comments Patient Comments Pt willing to work with therapy. C/o R heel burning sensation, reports L hip sore but ok. Therapy Pain Assessment Pain When Pain Assessed At Rest Pain Present Pain Present Pain Reported Location R heel burning Scale Used intense, unable to quantify Description Burning Pain Behaviors Facial Grimacing,Holding Area, Restlessness,Wincing Pain Management Techniques Distraction,Modification of Treatment,Re-positioning, Timing of Activity with Medications M4 PT-IP Mobility and Gait Start: 01/16/23 11:44 Freq: NEEDED Status: Active Protocol: Document 01/17/23 07:52 SP (Rec: 01/17/23 11:58 SP [id number]) PT-Bed Mobility Assessment Supine to Sit Supine to Sit Minimal Assistance,1 Person Assistance,Head of Bed Elevated,Bedrails Scooting Scooting to Edge of Bed Standby Assistance PT-Transfer Assessment Sit to and From Stand Sit to and from Stand Moderate Assistance,1 Person Assistance,Use of Upper Extremities Equipment Transfer Assistive Device Gait Belt,Front Wheeled Walker Transfers Transfer Destination Chair Transfer Technique Stand Pivot Transfer Ability Level of Assist Minimal Assistance,Moderate Assistance,1 Person Assistance ,Use of Upper Extremities Comments Mobility Comments RISK MANAGEMENT MANAGER instructed pt LE post op ex supine and seated in chair: AP, QS and GS 5 reps each, continued cues for understanding performance limited recall, didn't remember performed in bed end tx review. Sup>sit Min A trunk righting and each LE to EOB with skilled cues bed rail support. Scoot EOB SBA. STS Mod A cue push from bed then transition to FWW. Pt decreased RLE stance and demonstrated NWB on R heel during Stand pivot transfer bed> chair/ back fully and reach each UE to chair arms, self mgt FWW with single step cues. Pt reports little pain L hip but is ok but alot burning pain R heel. Pt scoot back fully, elevated BLEs in chair, provided tray, phone, call light and all needs inreach. Discussed with DOOR TRIMMER Min A w/ FWW and 1 step cues, as well as reports R heel burning pain and stated new medication should help. Recommending SNF. Gait Assessment Comments Gait Comments stand pivot only with fww due to R burning heel pain and unable bear wt into. Stable LLE post op hip WB with support BUE on FWW. Unable advance past transfer. Stair Climbing Assessment Comments Stair Climbing Comments no stairs need to assess. PT-Balance Assessment Sitting Balance and Reactions Static Sitting Balance Ability Good Dynamic Sitting Balance Ability Fair Standing Balance and Reactions Static Standing Balance Ability Poor Dynamic Standing Balance Ability Poor Device Used FWW M5 PT-IP Objective Assessments Start: 01/16/23 11:44 Freq: NEEDED Status: Active Protocol: Document 01/16/23 11:44 ES (Rec: 01/16/23 12:00 ES [id number]) Orientation Orientation/Cognition Level of Alertness Alert Orientation Name,Age,Birthday,Month,Year, Place Language Function Ability No Deficits Noted Safety Awareness Decreased Safety Awareness Memory Description Short Term Impaired Gross Range of Motion Upper Extremity ROM Assessment Within Functional Limits Lower Extremity ROM Assessment Bilaterally Impaired Impairments R hip limited 2/2 precautions. R knee appears to bed contracted to ~20 degrees. B ankle mobility limited. Strength Upper Extremity Strength Assessment Within Functional Limits Lower Extremity Strength Assessment Bilaterally Impaired Comments Strength Comments R LE grossly 3-/5. L LE grossly 4/5. Coordination Assessment Gross Coordination Gross Coordination WNL M6 PT-IP Treatment Start: 01/16/23 11:44 Freq: NEEDED Status: Active Protocol: Document 01/17/23 07:52 SP (Rec: 01/17/23 11:58 SP [id number]) Physical Therapy Treatment Exercises Exercises Ankle Pumps,Gluteal Sets,Quad Sets,Supine Hip Abduction Education Education Provided Precautions,Weight Bearing Status,Post-Op Packet,Safety Other Treatments Other Treatment Performed No recall to precautions, requires support for hip abd to EOB each LE due to report R heel pain. M7 PT-IP Assessment and Plan Start: 01/16/23 11:44 Freq: NEEDED Status: Active Protocol: Document 01/17/23 07:52 SP (Rec: 01/17/23 11:58 SP [id number]) PT Summary Assessment and Plan Potential Rehabilitation Potential Fair Status of Condition at Evaluation Stable Summary Impairments Pain,ROM,Strength,Balance, Cognition,Bed Mobility, Transfers,Gait,Activity Tolerance Progress Towards Goals Slow Progress due to Pain,Slow Progress due to Activity Tolerance Assessment Summary Pt recalled 0/3 precautions, R heel burning pain and challenged with bearing weight into RLE this tx limited mobility to stand pivot transfer Mod A w/ FWW. Pt will require SNF for progression strength and independence in mobility. Goals Bed Mobility Goal Standby Assistance Transfer Goal Standby Assistance Gait Goal Contact Guard Assistance Gait Distance 50 Other Goals Patient will be able to recall posterior hip precautions without cues. Patient will be able to propel self in w/c with UE's/LE's without breaking hip precautions without cues. Days to Meet Goals 3 Frequency of Treatment Frequency Of Treatment Twice a Day Treatment Plan Physical Therapy Treatment Plan Bed Mobility Training,Transfer Training,Gait Training, Therapeutic Exercise,Balance Retraining,Post Op Education, Discharge Planning,Hot or Cold Pack Other Recommendations and Next Treatment Progress transfers, gait with Focus FWW, review precautions and HEP. 1 step cues. Precautions Posterior Hip Precautions No Hip Flexion > 90 degrees,No Hip Internal Rotation,No Hip Adduction Weight Bearing Status Weight Bearing Status Weight Bear as Tolerated Recommendations To Nursing Amount of Assist Needed 1 Person Assist Discharge Recommendations PT Discharge Recommendations SNF Rehab Transportation Needs at Discharge Wheelchair/Cabulance
[2023-01-17] MEDS: ALBUTEROL/IPRATROPIUM 3 ML AMPUL INH ×3 (08:19→19:38)
[2023-01-17] MEDS: BUDESONIDE 0.5 MG/2 ML NEB INH ×2 (08:19→19:38)
[2023-01-17] MEDS: GABAPENTIN 300 MG CAPSULE PO ×3 (09:10→22:27)
[2023-01-17] MEDS: METOPROLOL ER 25 MG TABLET PO (09:10)
[2023-01-17] MEDS: FUROSEMIDE 20 MG TABLET PO (09:10)
[2023-01-17] MEDS: lisinopriL 20 MG TABLET PO (09:11)
[2023-01-17] MEDS: DOCUSATE 100 MG CAPSULE PO ×2 (09:15→22:26)
--- NOTE | 2023-01-17 11:12 | PM.PNPO.1 ---
Subjective Subjective Date Patient Seen: 01/17/23 Time Patient Seen: 07:30 Interval history: Patient is lying comfortably in bed this morning. He complains profusely about his right knee spasm, neuropathic pain in bilateral heels, and carpal tunnel syndrome. He is fixated on missing a call from someone. Denies calf tenderness, chest pain, shortness of breath. Exam Vital Signs (past 8 hours): - 01/17/23 06:47 01/17/23 08:19 01/17/23 09:04 Temperature 97.0 F L 97.1 F L Pulse Rate 103 H 104 H 66 Respiratory Rate 18 22 18 Blood Pressure 140/89 139/79 Pulse Oximetry 95 94 98 Oxygen Delivery Method Room Air Oxygen Flow Rate 0 0 0 Fraction of Inspired Oxygen 21 01/17/23 09:10 01/17/23 09:11 Temperature Pulse Rate 66 66 Respiratory Rate Blood Pressure 139/79 139/79 Pulse Oximetry Oxygen Delivery Method Oxygen Flow Rate Fraction of Inspired Oxygen Fraction of Inspired Oxygen 21 SaO2/FiO2 Ratio 447 Oxygen Delivery Method Room Air Oxygen Flow Rate 0 Narrative Exam Narrative: Awake and alert, mentation at baseline. Intraoperative right hip dressing clean, dry, and intact. Strength and sensation intact to bilateral lower extremities. Bilateral calves soft, compressible, nontender with no palpable cords or masses. Bilateral feet with 2+ pitting edema. Right knee with obvious muscle spasm. Objective Labs 01/16/23 06:16 [facility] Medical History Anoxic brain damage Asthma Atrial fibrillation and flutter CAD (coronary artery disease) COPD (chronic obstructive pulmonary disease) GERD (gastroesophageal reflux disease) History of developmental delay HLD (hyperlipidemia) HTN (hypertension) Melena Osteoarthritis PAF (paroxysmal atrial fibrillation) Proctocolitis (11/2022) Suspected sleep apnea TBI (traumatic brain injury) Surgical History History of nasal surgery Hx of hernia repair Social History household members: none Smoking Status: Former smoker alcohol intake: never Assessment & Plan Post-op Postoperative Procedures: Procedures Operation Date: 01/15/23 14:15 Actual Procedure Side Surgeon p Total Hip Arthroplasty Right Alexus Arnold, MD Postoperative day: 2 Postoperative status: doing well and marginal pain control Postoperative status narrative: Patient is progressing as expected after right total hip arthroplasty. He has had trouble with pain control, which is now improved after adding home dose of gabapentin as well as Vistaril for muscle spasm. Patient's home Lasix, lisinopril and metoprolol were also resumed today. Postoperative plan: routine post-op care Postoperative plan narrative: Continue with multimodal pain regimen. Plan to work with physical therapy. Discharge to group home facility once available. Quality VTE Deep Vein Thrombosis/Pulmonary Embolism Present on Admission: No
--- NOTE | 2023-01-17 14:34 | PT.IPTN ---
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) Unspecified intracranial injury with loss of consciousness status unknown, initial encounter (01/15/23) Presence of unspecified artificial hip joint (01/15/23) Surgery Performed Operation Date: 01/15/23 14:15 Actual Procedures p Total Hip Arthroplasty(Right) - Alexus Arnold MD Physical Therapy Treatment Note M2 PT-IP Current Condition Start: 01/16/23 11:44 Freq: NEEDED Status: Active Protocol: Document 01/17/23 07:52 SP (Rec: 01/17/23 11:58 SP [id number]) Physical Therapy Current Condition Current Condition Evaluation Date 01/16/23 Treatment Diagnosis s/p L posterior MARIA ALEJANDRA Onset Date 01/15/23 M3 PT-IP Subjective Start: 01/16/23 11:44 Freq: NEEDED Status: Active Protocol: Document 01/17/23 14:16 KS (Rec: 01/17/23 15:55 KS [id number]) Subjective Physical Therapy Visit Type Type Treatment Note Visit Start Time 14:16 Visit Stop Time 14:34 Total Visit Minutes 18 Number of DISHWASHING MACHINE OPERATOR Visits 3 Physical Therapy Visit Comments Patient Comments Pt req to get back in bed. M4 PT-IP Mobility and Gait Start: 01/16/23 11:44 Freq: NEEDED Status: Active Protocol: Document 01/17/23 14:16 KS (Rec: 01/17/23 15:55 KS [id number]) PT-Bed Mobility Assessment Sit to Supine Sit to Supine Minimal Assistance Scooting Scooting to Edge of Bed Standby Assistance PT-Transfer Assessment Sit to and From Stand Sit to and from Stand Moderate Assistance,1 Person Assistance,Use of Upper Extremities Equipment Transfer Assistive Device Gait Belt,Front Wheeled Walker Transfers Transfer Destination Bed Transfer Technique Stand Step Pivot Transfer Ability Level of Assist Moderate Assistance,1 Person Assistance,Use of Upper Extremities Comments Mobility Comments Pt in chair and req to get back in bed. Mod A for sit<> stand and stand step pivot w/ cues for FWW mgmt. Pt required [place] for LE guidance into bed . Performed ankle pumps, SLR, and heel slides. Left in bed w / all needs in reach. Gait Assessment Comments Gait Comments Unable to progress gait Stair Climbing Assessment Comments Stair Climbing Comments no stairs need to assess. PT-Balance Assessment Sitting Balance and Reactions Static Sitting Balance Ability Good Dynamic Sitting Balance Ability Fair Standing Balance and Reactions Static Standing Balance Ability Poor Dynamic Standing Balance Ability Poor Device Used FWW M5 PT-IP Objective Assessments Start: 01/16/23 11:44 Freq: NEEDED Status: Active Protocol: Document 01/16/23 11:44 ES (Rec: 01/16/23 12:00 ES [id number]) Orientation Orientation/Cognition Level of Alertness Alert Orientation Name,Age,Birthday,Month,Year, Place Language Function Ability No Deficits Noted Safety Awareness Decreased Safety Awareness Memory Description Short Term Impaired Gross Range of Motion Upper Extremity ROM Assessment Within Functional Limits Lower Extremity ROM Assessment Bilaterally Impaired Impairments R hip limited 2/2 precautions. R knee appears to bed contracted to ~20 degrees. B ankle mobility limited. Strength Upper Extremity Strength Assessment Within Functional Limits Lower Extremity Strength Assessment Bilaterally Impaired Comments Strength Comments R LE grossly 3-/5. L LE grossly 4/5. Coordination Assessment Gross Coordination Gross Coordination WNL M6 PT-IP Treatment Start: 01/16/23 11:44 Freq: NEEDED Status: Active Protocol: Document 01/17/23 14:16 KS (Rec: 01/17/23 15:55 KS [id number]) Physical Therapy Treatment Exercises Exercises Ankle Pumps,Heel Slides, Straight Leg Raises Education Education Provided Precautions,Weight Bearing Status,Post-Op Packet,Safety Other Treatments Other Treatment Performed recalled no adduction M7 PT-IP Assessment and Plan Start: 01/16/23 11:44 Freq: NEEDED Status: Active Protocol: Document 01/17/23 14:16 KS (Rec: 01/17/23 15:55 KS [id number]) PT Summary Assessment and Plan Potential Rehabilitation Potential Fair Summary Impairments Pain,ROM,Strength,Balance, Cognition,Bed Mobility, Transfers,Gait,Activity Tolerance Progress Towards Goals Slow Progress due to Pain,Slow Progress due to Activity Tolerance Assessment Summary Pt able to transfer w/ FWW and mod A w/ max cues for FWW use . Poor balance and high fall risk. Will require SNF to improve strength and functional mobility. Goals Bed Mobility Goal Standby Assistance Transfer Goal Standby Assistance Gait Goal Contact Guard Assistance Gait Distance 50 Other Goals Patient will be able to recall posterior hip precautions without cues. Patient will be able to propel self in w/c with UE's/LE's without breaking hip precautions without cues. Days to Meet Goals 3 Frequency of Treatment Frequency Of Treatment Twice a Day Treatment Plan Physical Therapy Treatment Plan Bed Mobility Training,Transfer Training,Gait Training, Therapeutic Exercise,Balance Retraining,Post Op Education, Discharge Planning,Hot or Cold Pack Other Recommendations and Next Treatment Progress transfers, gait with Focus FWW, review precautions and HEP. 1 step cues. Precautions Posterior Hip Precautions No Hip Flexion > 90 degrees,No Hip Internal Rotation,No Hip Adduction Weight Bearing Status Weight Bearing Status Weight Bear as Tolerated Recommendations To Nursing Amount of Assist Needed 1 Person Assist Discharge Recommendations PT Discharge Recommendations SNF Rehab Transportation Needs at Discharge Wheelchair/Cabulance
--- NOTE | 2023-01-17 15:09 | CM.DPC ---
Addendum entered by SIRI Farley 01/17/23 15:54: ADD: Per [facility], unsure if they can accept pt and will keep him on their list but likely would need to decline pt due to already high needs residents at their facility. Pt's PASRR would likely be positive under DD. BF Original Note: DCP SNF Planning Per Ortho, pt making progress and continue to work with PT and OT ordered for today. Per PT, pt able to participate with therapies and able to do bed mobility and stand with walker and take a few steps but some pain in his heal that is limiting his ability to bear weight today which if resolved could improve his mobility. Still recommending SNF. PARVEEN contacted following previously faxed [place] SNFs: [facility]- not contracted, cannot accept [facility]- no beds until maybe next week [facility]- on hold for new admissions at this time [facility]- left 2 messages Hay[facility]- hadn't received referral, confirmed they are contracted with [facility], refaxed to [phone]. PARVEEN then faxed following [facility] SNFs: [facility]- full until next week, maybe Sat or [facility]- not contracted, would be 40% out pocket daily cost [facility]- faxed and they are not sure insurance will auth, waiting to hear if they will try to get auth [facility]- faxed and left msgs SW also called pt's [facility] [phone] and left msg in case SNF unable to be secured and plan for return to their facility is needed. PARVEEN spoke to pt's Guardian Bhumi [phone] and updated on difficulty of finding SNF contracted with pt's insurance that can accept. She confirms her preference would still be [facility] but would be agreeable to [facility] if needed. Plan: SW to follow closely for two [place] SNF reviews and [facility] and [facility] to return call to determine if one can accept and initiate insurance auth. SIRI Farley
--- NOTE | 2023-01-17 16:06 | OT.IP.EVAL ---
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) Unspecified intracranial injury with loss of consciousness status unknown, initial encounter (01/15/23) Presence of unspecified artificial hip joint (01/15/23) Surgery Performed Operation Date: 01/15/23 14:15 Actual Procedures p Total Hip Arthroplasty(Right) - Alexus Arnold MD Past Medical History (Last Reviewed 01/17/23 @ 11:19 by Daphney Espinosa PA-C) Anoxic brain damage Asthma Atrial fibrillation and flutter CAD (coronary artery disease) COPD (chronic obstructive pulmonary disease) GERD (gastroesophageal reflux disease) History of developmental delay HLD (hyperlipidemia) HTN (hypertension) Melena Osteoarthritis PAF (paroxysmal atrial fibrillation) Proctocolitis (11/2022) Suspected sleep apnea TBI (traumatic brain injury) Surgical History (Last Reviewed 01/17/23 @ 11:19 by Daphney Espinosa PA-C) History of nasal surgery Hx of hernia repair Occupational Therapy Inpatient Evaluation/Re-Eval M1 PT/OT-IP Prior Functional Status Start: 01/16/23 11:44 Freq: NEEDED Status: Active Protocol: Document 01/16/23 11:44 ES (Rec: 01/16/23 12:00 ES [id number]) Medical Review Prior Functional Status Medical History Reviewed Yes Communication WFL Mobility and Gait Needed assist for all mobility . Was primarily using w/c, scooting with feet independently, but needed help with transfers. Activities of Daily Living and IADL's Needed assist for all ADL's. Prior Functional Level (Other details) Used urinal mostly, but could transfer to toilet with assist . 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 M1 PT/OT-IP Prior Functional Status Start: 01/17/23 16:52 Freq: NEEDED Status: Active Protocol: Document 01/17/23 15:25 CCC (Rec: 01/17/23 17:19 [facility] [id number]) Medical Review Prior Functional Status Medical History Reviewed Yes Communication WFL Mobility and Gait Needed assist for all mobility . Was primarily using w/c, scooting with feet independently, but needed help with transfers. Activities of Daily Living and IADL's Needed assist for all ADL's. Pt states his facility assists him with toileting , dressing , showering and also getting out of bed. Prior Functional Level (Other details) Used urinal mostly, but could transfer to toilet with assist . 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 M2 OT-IP Current Condition Start: 01/17/23 16:52 Freq: Status: Active Protocol: Document 01/17/23 15:25 [facility] (Rec: 01/17/23 17:19 [facility] [id number]) Occupational Therapy Current Condition Current Condition Evaluation Date 01/17/23 Treatment Diagnosis S/p R MARIA ALEJANDRA Diagnosis Onset Date 01/15/23 Post Operative Precautions Posterior Hip Precautions No Hip Flexion > 90 degrees,No Hip Internal Rotation,No Hip Adduction Weight Bearing Status Weight Bearing Status Weight Bear as Tolerated M3 OT- IP Subjective and Pain Start: 01/17/23 16:52 Freq: Status: Active Protocol: Document 01/17/23 15:25 [facility] (Rec: 01/17/23 17:19 [facility] [id number]) OT- Subjective Occupational Therapy Visit Type Type Initial Evaluation Visit Start Time 15:25 Visit Stop Time 16:06 Total Visit Minutes 41 Occupational Therapy Visit Comments Patient Comments Pt agreed to get up. Patient/Caregiver Goals TO get better. OT Pain Assessment Pain When Pain Assessed At Rest Pain Present Pain Present Pain Reported Location R heel burning Intensity 4 M4 OT- IP ADL's Start: 01/17/23 16:52 Freq: Status: Active Protocol: Document 01/17/23 15:25 [facility] (Rec: 01/17/23 17:19 [facility] [id number]) OT KEC-Vfds-Hqpwiae General Evaluation Self-Feeding Ability Independent Comments OT Self-Feeding Comments Pt needing reminders not to lean too far forwards while eating as pt eating while seated on the edge of the bed. OT ADL-Grooming Comments OT Grooming Comments Not performed. OT ADL-Oral Care Comments Oral Care Comments Not performed. OT ADL-Dressing General Eval Lower Body Dressing Ability Maximum Assistance Comments OT Dressing Comments Pt will need MAX A for all LB dressing needs. OT ADL-Toileting General Evaluation Toileting Ability Standby Assistance,Maximum Assistance Comments OT Toileting Comments Pt able to hold urinal in place and SBA for set-up for wash cloth afterwards. Pt will needing assist for hygiene and clothing management needs after bowel movement. OT ADL-Bathing Comments OT Bathing Comments Pt states his facility takes him to the shower room. M5 OT- IP IADL's Start: 01/17/23 16:52 Freq: Status: Active Protocol: Document 01/17/23 15:25 [facility] (Rec: 01/17/23 17:19 [facility] [id number]) OT-Instrumental Activities of Daily Living Home Safety Awareness Awareness of Need for Assistance at Home Decreased Awareness Home Safety Comments Pt needing increased time to process and follow directions and unable to recall his hip precautions. Medication Management Medication Management Caregiver Administers Money Management Money Management Caregiver Provides Assistance Meal Preparation Meal Preparation Caregiver Provides Assist Human Factors Specialist Human Factors Specialist Caregiver Provides Assist M6 OT- IP Functional Cognition Start: 01/17/23 16:52 Freq: Status: Active Protocol: Document 01/17/23 15:25 [facility] (Rec: 01/17/23 17:19 [facility] [id number]) Cognitive Factors Limiting Selfcare Function Cognitive Ability Level of Alertness Alert Patient Orientation Name,Place,Situation Attention Span Ability Capable of Focused Attention, Capable of Sustained Attention Ability to Follow Commands Able to Follow One Step Commands with Increased Time, Able to Follow One Step Commands with Repetition Memory Description Short Term Impaired Safety Awareness Decreased Recall of Precautions,Decreased Ability to Apply Precautions, Underestimates Need for Assistance Cognitive Comments Cognitive Assessment Comments Pt needing continuous vc to follow his hip precautions as he is very forgetful during all ADl and mobility needs. OT- Vision and Hearing OT- Hearing Assessment OT- Hearing Assessment WFL M7 OT- IP Mobility and Balance Start: 01/17/23 16:52 Freq: Status: Active Protocol: Document 01/17/23 15:25 [facility] (Rec: 01/17/23 17:19 [facility] [id number]) OT- Bed Mobility Assessment Supine to Sit Supine to Sit Assist Moderate Assistance Sit to Supine Sit to Supine Assist Maximum Assistance Scooting Scooting to Edge of Bed Maximum Assistance OT-Transfer Assessment Sit to and From Stand Sit to and from Stand Moderate Assistance Comments Mobility Comments MODA to MAXA to help move his RLE to the edge of the bed and back into bed and to be sure that pt was not leaning forwards to far. Pt able to stand MODA X1 to FWW and take a few side steps to the head of the bed and heavy use of BUE on the FWW and MOD/MAXA. OT- Balance Assessment Sitting Balance and Reactions Static Sitting Balance Ability Good Dynamic Sitting Balance Ability Fair Standing Balance and Reactions Static Standing Balance Ability Poor Dynamic Standing Balance Ability Poor Comments Other Balance Tests/Deviations/Treatment Pt able to sit at edge of bed : well , decreased balance whiel standing on his feet. M8 OT- IP Objective Assessments Start: 01/17/23 16:52 Freq: Status: Active Protocol: Document 01/17/23 15:25 [facility] (Rec: 01/17/23 17:19 [facility] [id number]) OT-Muscle Tone Assessment Comments Muscle Tone Comments Noted Right LE spasms, able to notify nursing in addition to pt's complaining of having a itchy back. M9 OT- IP Assessment and Plan Start: 01/17/23 16:52 Freq: Status: Active Protocol: Document 01/17/23 15:25 [facility] (Rec: 01/17/23 17:19 [facility] [id number]) OT Summary Assessment and Plan Potential Rehabilitation Potential Good Analytic Complexity at Evaluation Low Summary OT Impairments Pain,Strength,Balance, Functional Cognition, Functional Mobility,Dressing, Toileting,Bathing,Toilet Transfers,Shower Transfers, Activity Tolerance Progress Towards Goals Progressing Toward Goals,Slow Progress due to Pain,Slow Progress due to Activity Tolerance,Slow Progress due to Cognition Assessment Summary Pt low complexity and now needing what appears to be more assist than his facility can assist with especially with his mobility needs as now needing MODA /MAX A for bed mobility and to come to stand with the FWW. Pt would greatly benefit from skilled rehab to continue to go over his hip precaution and to be able to incoporate them into his ADl and mobility needs. Currently pt's wc is very low and would benefit form wc cushion or higher wc height due to pt's present hip precautions. Prior pt states mobilizes in his wc . Goals Self-Feeding Goal Independent Grooming Goal Independent Dressing Goal Moderate Assistance Toileting Goal Moderate Assistance Bathing Goal Moderate Assistance Toilet Transfer Goal Minimal Assistance Shower Transfer Goal Minimal Assistance Days to Meet Goals 20 Frequency of Treatment Frequency Of Treatment Once a Day Treatment Plan OT Treatment Plan ADL Training,Functional Mobility,Patient/Family Education,Discharge Planning Other Treatment Recommendations and Next Transfer to BSC with MODAX 1 Treatment Focus with FWW Discharge Recommendations OT Discharge Recommendations SNF Rehab Transportation Needs at Discharge Wheelchair/Cabulance
[2023-01-17] MEDS: TRAZODONE 50 MG TABLET PO (22:27)
[2023-01-18] VITALS (10 sets, daily range): BP systolic 102–118; BP diastolic 42–77; PULSE 91–106; RESP 16–22; TEMP 36.4–36.7; O2SAT 92–96
[2023-01-18] MEDS: OXYCODONE IR 5 MG TABLET PO ×3 (00:14→16:41)
[2023-01-18] MEDS: IBUPROFEN 400 MG TABLET PO ×6 (03:26→21:25)
[2023-01-18] MEDS: hydrOXYzine pamoate 25 MG CAPSULE PO ×2 (03:27→21:25)
[2023-01-18] MEDS: ACETAMINOPHEN 325 MG TABLET 650 MG PO ×4 (03:27→18:55)
[2023-01-18] MEDS: ALBUTEROL/IPRATROPIUM 3 ML AMPUL INH ×3 (07:28→19:56)
[2023-01-18] MEDS: BUDESONIDE 0.5 MG/2 ML NEB INH ×2 (07:28→19:56)
[2023-01-18 08:27] LABS: Hemoglobin 11.9 g/dL (13.5-17.5); Mean Corpuscular HGB Conc 34.1 % (30-36); Mean Corpuscular Hemoglobin 31.2 PG (26-34); Mean Corpuscular Volume 91.6 fL (80-100); Platelet Count 222 X10^3/uL (150-400); Red Blood Cell Count 3.83 X10^6/uL (4.5-5.9); Red Cell Distribution Width 13.5 % (11.6-14.8); White Blood Cell Count 11.1 X10^3/uL (4.5-11.0)
[2023-01-18 08:45] LABS: Alanine Aminotransferase 19 IU/L (<50); Albumin 3.4 g/dL (3.5-5.0); Albumin Globulin Ratio 1.2 (1.0-2.8); Alkaline Phosphatase 70 U/L (38-126); Aspartate Aminotransferase 36 IU/L (17-59); BUN Creatinine Ratio 33.3 (6-22); Bilirubin Total 0.4 mg/dL (0.2-1.3); Blood Urea Nitrogen 21 mg/dL (9-20); Calcium 8.1 mg/dL (8.4-10.2); Carbon Dioxide 26 mmol/L (22-32); Chloride 101 mmol/L (98-107); Estimated Glomerular Filt Rate > 60 mL/min (>60); Globulin 2.9 g/dL (1.7-4.1); Glucose 105 mg/dL (80-110); HEMOLYSIS < 15 (0-50); Potassium 4.6 mmol/L (3.4-5.1); Sodium 134 mmol/L (137-145); Total Protein 6.3 g/dL (6.3-8.2)
--- NOTE | 2023-01-18 08:54 | PM.PNPO.1 ---
Subjective Subjective Date Patient Seen: 01/18/23 Time Patient Seen: 08:54 Interval history: Patient is complaining of moderate right hip pain this morning as well as a burning sensation going all the way to his toes. He has a history of an anoxic brain injury and has been somewhat impulsively drinking fluids in the hospital. His nurses are concerned about increased bilateral lower extremity edema and diaphoretic episodes. He denies any fevers, chills, night sweats. We are waiting on SNF placement, which is proving difficult. Exam Vital Signs (past 8 hours): - 01/18/23 04:00 01/18/23 07:28 Temperature 97.7 F Pulse Rate 95 H 93 H Respiratory Rate 16 22 Blood Pressure 102/66 Pulse Oximetry 93 94 Oxygen Delivery Method Room Air Fraction of Inspired Oxygen 21 SaO2/FiO2 Ratio 457 Oxygen Delivery Method Room Air Oxygen Flow Rate 0 Narrative Exam Narrative: 67-year-old male, resting comfortably in bed, no acute distress. Right hip dressing is clean, dry, intact. Bilateral lower extremity: Motor functions are grossly intact, sensation is grossly intact to light touch, calves are soft and nontender to palpation. 2+ bilateral lower extremity edema, right leg appears to be mildly erythematous but not excessively warm to the touch. Objective Labs 01/18/23 08:19 01/18/23 08:19 Labs: Laboratory Results - last 24 hr 01/18/23 08:19 WBC 11.1 H RBC 3.83 L Hgb 11.9 L Hct 35.0 L MCV 91.6 MCH 31.2 MCHC 34.1 RDW 13.5 Plt Count 222 PFSH Medical History Anoxic brain damage Asthma Atrial fibrillation and flutter CAD (coronary artery disease) COPD (chronic obstructive pulmonary disease) GERD (gastroesophageal reflux disease) History of developmental delay HLD (hyperlipidemia) HTN (hypertension) Melena Osteoarthritis PAF (paroxysmal atrial fibrillation) Proctocolitis (11/2022) Suspected sleep apnea TBI (traumatic brain injury) Surgical History History of nasal surgery Hx of hernia repair Social History household members: none Smoking Status: Former smoker alcohol intake: never Assessment & Plan Post-op Postoperative Procedures: Procedures Operation Date: 01/15/23 14:15 Actual Procedure Side Surgeon p Total Hip Arthroplasty Right Alexus Arnold MD Postoperative day: 3 Postoperative status narrative: -stable status post right total hip arthroplasty, posterior approach -history of anoxic brain injury Postoperative plan narrative: -mobilize with PT. Weightbearing as tolerated with front wheel walker or cane. Maintain posterior hip precautions x6 weeks -continue with multimodal pain management. Discontinue IV Dilaudid. Added Flexeril for muscle spasm -Resume baseline Xarelto, this should be sufficient for DVT prophylaxis -WBCs are mildly elevated, likely due to stress reaction. Repeat CBC and CMP tomorrow. CMP results are not available at this time, some concern for hyponatremia due to excessive fluid intake orally. -encouraged patient to stick with 1 drink per hour, he had ordered coffee, orange juice, water for breakfast and was already requesting a 2nd cup of coffee before finishing his 1st cup. -elevate toes above the nose, encouraged ankle pumps to reduce calf swelling -disposition: Waiting on SNF placement. The patient currently lives at an assisted living facility, but they have no medical help postoperatively. He has demonstrated compulsive behaviors in the hospital and I am concerned about him discharging to his regular facility. I will check in later today. Quality VTE Deep Vein Thrombosis/Pulmonary Embolism Present on Admission: No
[2023-01-18] MEDS: DOCUSATE 100 MG CAPSULE PO ×2 (09:05→21:25)
[2023-01-18] MEDS: FUROSEMIDE 20 MG TABLET PO (09:06)
[2023-01-18] MEDS: METOPROLOL ER 25 MG TABLET PO (09:06)
[2023-01-18] MEDS: OXYCODONE IR 10 MG TABLET PO ×2 (09:06→21:25)
[2023-01-18] MEDS: polyethylene glycoL 3350 17 GM POWD.PACK PO (09:06)
[2023-01-18] MEDS: GABAPENTIN 300 MG CAPSULE PO ×3 (09:07→21:25)
--- NOTE | 2023-01-18 09:20 | PT.IPTN ---
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) Unspecified intracranial injury with loss of consciousness status unknown, initial encounter (01/15/23) Presence of unspecified artificial hip joint (01/15/23) Surgery Performed Operation Date: 01/15/23 14:15 Actual Procedures p Total Hip Arthroplasty(Right) - Alexus Arnold MD Physical Therapy Treatment Note M2 PT-IP Current Condition Start: 01/16/23 11:44 Freq: NEEDED Status: Active Protocol: Document 01/17/23 07:52 SP (Rec: 01/17/23 11:58 SP [id number]) Physical Therapy Current Condition Current Condition Evaluation Date 01/16/23 Treatment Diagnosis s/p L posterior MARIA ALEJANDRA Onset Date 01/15/23 M3 PT-IP Subjective Start: 01/16/23 11:44 Freq: NEEDED Status: Active Protocol: Document 01/18/23 09:45 TS (Rec: 01/18/23 10:01 TS [id number]) Subjective Physical Therapy Visit Type Type Treatment Note Visit Start Time 09:20 Visit Stop Time 09:43 Total Visit Minutes 23 Number of DOCTORATE OF CHIROPRACTIC Visits 4 Physical Therapy Visit Comments Patient Comments Pt reports burning in his RLE, wants to get up to chair. Therapy Pain Assessment Pain When Pain Assessed At Rest Pain Present Pain Present Pain Reported Location R heel burning Description Acute,Burning Pain Behaviors Facial Grimacing,Holding Area, Restlessness,Wincing Pain Management Techniques Distraction,Modification of Treatment,Re-positioning, Timing of Activity with Medications M4 PT-IP Mobility and Gait Start: 01/16/23 11:44 Freq: NEEDED Status: Active Protocol: Document 01/18/23 09:45 TS (Rec: 01/18/23 10:01 TS [id number]) PT-Bed Mobility Assessment Supine to Sit Supine to Sit Standby Assistance,Head of Bed Elevated,Bedrails Scooting Scooting to Edge of Bed Standby Assistance PT-Transfer Assessment Sit to and From Stand Sit to and from Stand Minimal Assistance Equipment Transfer Assistive Device Gait Belt,Front Wheeled Walker Transfers Transfer Destination Chair Transfer Technique Stand Step Pivot Transfer Ability Level of Assist Minimal Assistance,1 Person Assistance,Use of Upper Extremities Comments Mobility Comments Pt found resitng in bed, agreeable to PT session. Pt is impulsive to move before therapist is ready and requires heavy cueing throughout session. Pt performed supine to sit SBA with HOB elevated to 55D BUE support on bed. Pt sat EOB with good midline balance with BUE, flexed posture. Sit to stand x2 Janie, provided cues for BUE support pushing from bed and maintaining flexion precautions. Pt ambulated in room ~30 Janie, requires heavy cueing for steps, FWW management, staying inside of FWW. Pt sat in chair required cues to maintain flexion precaution. Pt was left in chair with call light nearby, phone, chair alarm on, Rn notified of dressing change for incision. Gait Assessment Gait Gait Assistance Required: Minimum Assistance Distance (Feet) 30 Able to Maintain Weight Bearing Status Yes During Gait Assistive Devices Assistive Device Front Wheeled Walker Orthotic/Prosthetic Devices or Brace: No Gait Deviations General Gait Pattern Antalgic,Decreased Stride Length,Decreased Feet Clearance,Flexed Trunk,Wide Based Gait Factors Limiting Gait Function Factors Limiting Gait Function Decreased Activity Tolerance, Decreased Strength,Difficulty Following Directions,Limited Range of Motion,Pain,Poor Balance,Poor Safety Awareness Comments Gait Comments Pt ambulated in room with step to gait, heavy UE assist on FWW ~30 Janie. He requires heavy cueing for step sequencing and FWW managment, pt able to follow single step instructions ~50% of the time. Stair Climbing Assessment Comments Stair Climbing Comments no stairs need to assess. PT-Balance Assessment Sitting Balance and Reactions Static Sitting Balance Ability Good Dynamic Sitting Balance Ability Fair Standing Balance and Reactions Static Standing Balance Ability Fair Dynamic Standing Balance Ability Poor Device Used FWW M5 PT-IP Objective Assessments Start: 01/16/23 11:44 Freq: NEEDED Status: Active Protocol: Document 01/16/23 11:44 ES (Rec: 01/16/23 12:00 ES [id number]) Orientation Orientation/Cognition Level of Alertness Alert Orientation Name,Age,Birthday,Month,Year, Place Language Function Ability No Deficits Noted Safety Awareness Decreased Safety Awareness Memory Description Short Term Impaired Gross Range of Motion Upper Extremity ROM Assessment Within Functional Limits Lower Extremity ROM Assessment Bilaterally Impaired Impairments R hip limited 2/2 precautions. R knee appears to bed contracted to ~20 degrees. B ankle mobility limited. Strength Upper Extremity Strength Assessment Within Functional Limits Lower Extremity Strength Assessment Bilaterally Impaired Comments Strength Comments R LE grossly 3-/5. L LE grossly 4/5. Coordination Assessment Gross Coordination Gross Coordination WNL M6 PT-IP Treatment Start: 01/16/23 11:44 Freq: NEEDED Status: Active Protocol: Document 01/18/23 09:45 TS (Rec: 01/18/23 10:01 TS [id number]) Physical Therapy Treatment Education Education Provided Precautions,Weight Bearing Status,Post-Op Packet,Safety Other Treatments Other Treatment Performed Pt recalled no adduction. M7 PT-IP Assessment and Plan Start: 01/16/23 11:44 Freq: NEEDED Status: Active Protocol: Document 01/18/23 09:45 TS (Rec: 01/18/23 10:01 TS [id number]) PT Summary Assessment and Plan Potential Rehabilitation Potential Fair Status of Condition at Evaluation Stable Summary Impairments Pain,ROM,Strength,Balance, Cognition,Bed Mobility, Transfers,Gait,Activity Tolerance Progress Towards Goals Slow Progress due to Pain,Slow Progress due to Activity Tolerance Assessment Summary Pt continues to require heavy cueing for hip precautions throughout session, recalls 1/ 3 no adduction. He did progress his gait to 30' in room with Janie, he does require heavy cueing for steps sequencing, WBAT, and FWW management, pt not keeping self inside FWW. PT continues to recommend SNF at this time. Pt remains unsafe/fall risks, would benefit greatly from skilled therapy. He continues to report he can't do this on his own and needs constant reminders on what to do. Goals Bed Mobility Goal Standby Assistance Transfer Goal Standby Assistance Gait Goal Contact Guard Assistance Gait Distance 50 Other Goals Patient will be able to recall posterior hip precautions without cues. Patient will be able to propel self in w/c with UE's/LE's without breaking hip precautions without cues. Days to Meet Goals 3 Frequency of Treatment Frequency Of Treatment Twice a Day Treatment Plan Physical Therapy Treatment Plan Bed Mobility Training,Transfer Training,Gait Training, Therapeutic Exercise,Balance Retraining,Post Op Education, Discharge Planning,Hot or Cold Pack Other Recommendations and Next Treatment Progress transfers, gait with Focus FWW, review precautions and HEP. 1 step cues. Precautions Posterior Hip Precautions No Hip Flexion > 90 degrees,No Hip Internal Rotation,No Hip Adduction Weight Bearing Status Weight Bearing Status Weight Bear as Tolerated Recommendations To Nursing Amount of Assist Needed Independent Discharge Recommendations PT Discharge Recommendations SNF Rehab Transportation Needs at Discharge Wheelchair/Cabulance
--- NOTE | 2023-01-18 11:36 | CM.DPC ---
DCP Cont: Per MD, pt seems to be stable and awaiting d/c plan and per RECREATIONAL RESORT MANAGER this morning pt was able to do bed mobility Giulia and ambulate with FWW Giulia but needed regular cueing and reminders and did 30ft in the room. PARVEEN contacted following previously faxed [place] SNFs: [facility]- not contracted, cannot accept [facility]- no beds until maybe next week [facility]- on hold for new admissions at this time [facility]- left 2 messages [facility]- no beds until mid to late next week. PARVEEN then faxed following [facility] SNFs: [facility]- full until next week, maybe Sat or [facility]- not contracted, would be 40% out pocket daily cost [facility]- no [facility]- no SW also called pt's [facility] facility [phone] and spoke to Rissa who confirms pt was using w/c independently scooting with his feet and had help with dressing and mod assist in the shower and pt would call for help when he needed it but did some ADLs independently. PARVEEN discussed SNF unable to be secured at this time and barriers of insurance and bed availability and appropriate fit and plan for likely need to return to their facility. PARVEEN faxed requested clinicals to [facility] for their DNS Juli to review to fax [phone]. PARVEEN spoke to pt's Guardian Bhumi [phone] and updated on difficulty of finding SNF contracted with pt's insurance that can accept and discussion regarding [facility] review to determine if they can meet pt's needs with maybe some higher level of care and Home Health. Guardian acknowledges understanding and will await [facility] review and determination. PARVEEN faxed initial Home Health referral to [facility] in anticipation of HH need at [facility] in [place]. Plan: SW to follow closely for [facility] review to confirm pt can return as currently no SNF able to be secured in [facility] or [facility] and if return to [facility] then finalize HH referral with [facility]. Taty Lanza MSW
[2023-01-18] MEDS: CYCLOBENZAPRINE 10 MG TABLET 5 MG PO ×2 (12:10→16:45)
--- NOTE | 2023-01-18 14:15 | PT.IPTN ---
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) Unspecified intracranial injury with loss of consciousness status unknown, initial encounter (01/15/23) Presence of unspecified artificial hip joint (01/15/23) Surgery Performed Operation Date: 01/15/23 14:15 Actual Procedures p Total Hip Arthroplasty(Right) - Alexus Arnold MD Physical Therapy Treatment Note M2 PT-IP Current Condition Start: 01/16/23 11:44 Freq: NEEDED Status: Active Protocol: Document 01/17/23 07:52 SP (Rec: 01/17/23 11:58 SP [id number]) Physical Therapy Current Condition Current Condition Evaluation Date 01/16/23 Treatment Diagnosis s/p L posterior MARIA ALEJANDRA Onset Date 01/15/23 M3 PT-IP Subjective Start: 01/16/23 11:44 Freq: NEEDED Status: Active Protocol: Document 01/18/23 14:40 TS (Rec: 01/18/23 15:07 TS [id number]) Subjective Physical Therapy Visit Type Type Treatment Note Visit Start Time 14:15 Visit Stop Time 14:33 Total Visit Minutes 18 Number of BOTTLE LABEL INSPECTOR Visits 5 Physical Therapy Visit Comments Patient Comments Pt continues to report burning pain in RLE and pain in L knee. Therapy Pain Assessment Pain When Pain Assessed During Mobility Pain Present Pain Present Pain Reported M4 PT-IP Mobility and Gait Start: 01/16/23 11:44 Freq: NEEDED Status: Active Protocol: Document 01/18/23 14:40 TS (Rec: 01/18/23 15:07 TS [id number]) PT-Bed Mobility Assessment Sit to Supine Sit to Supine Standby Assistance Scooting Scooting Up and Down in Bed Standby Assistance PT-Transfer Assessment Sit to and From Stand Sit to and from Stand Contact Guard Assistance Equipment Transfer Assistive Device Gait Belt,Front Wheeled Walker Orthotic/Prosthetic Devices or Brace: No Comments Mobility Comments Pt found sitting in bedside chair, agreeable to PT session . Pt recalled 2/3 precautions( internal rotation). Pt performed sit to stand x1 CGA from chair, required cues for BUE support on arms of chair and cues for hip flexion precaution. Pt ambulated ~ 15' CGA/SBA with step to gait, leans heavily on FWW, toe touches on RLE possibly due to not being able to extend RLE. Pt required rest break for dressing change on surgical incision. Sit to stand CGA from bed, leans heavily on FWW with RUE, requires cues for hip flexion precaution. Pt performed sidestep x6 along EOB SBA, antalgic gait with continued toe touch on RLE. Sit to supine SBA, required cues for decreased hip flexion . Pt was left in bed with call light nearby, Rn in room. Gait Assessment Gait Gait Assistance Required: Contact Guard Assist Distance (Feet) 20 Able to Maintain Weight Bearing Status Yes During Gait Assistive Devices Assistive Device Front Wheeled Walker Orthotic/Prosthetic Devices or Brace: No Gait Deviations General Gait Pattern Antalgic,Decreased Stride Length,Decreased Feet Clearance,Flexed Trunk,Wide Based Gait Factors Limiting Gait Function Factors Limiting Gait Function Decreased Activity Tolerance, Decreased Strength,Difficulty Following Directions,Limited Range of Motion,Pain,Poor Balance,Poor Safety Awareness Comments Gait Comments See mobility comments. Stair Climbing Assessment Comments Stair Climbing Comments no stairs need to assess. PT-Balance Assessment Sitting Balance and Reactions Static Sitting Balance Ability Good Dynamic Sitting Balance Ability Fair Standing Balance and Reactions Static Standing Balance Ability Fair Dynamic Standing Balance Ability Poor Device Used FWW M5 PT-IP Objective Assessments Start: 01/16/23 11:44 Freq: NEEDED Status: Active Protocol: Document 01/16/23 11:44 ES (Rec: 01/16/23 12:00 ES [id number]) Orientation Orientation/Cognition Level of Alertness Alert Orientation Name,Age,Birthday,Month,Year, Place Language Function Ability No Deficits Noted Safety Awareness Decreased Safety Awareness Memory Description Short Term Impaired Gross Range of Motion Upper Extremity ROM Assessment Within Functional Limits Lower Extremity ROM Assessment Bilaterally Impaired Impairments R hip limited 2/2 precautions. R knee appears to bed contracted to ~20 degrees. B ankle mobility limited. Strength Upper Extremity Strength Assessment Within Functional Limits Lower Extremity Strength Assessment Bilaterally Impaired Comments Strength Comments R LE grossly 3-/5. L LE grossly 4/5. Coordination Assessment Gross Coordination Gross Coordination WNL M6 PT-IP Treatment Start: 01/16/23 11:44 Freq: NEEDED Status: Active Protocol: Document 01/18/23 14:40 TS (Rec: 01/18/23 15:07 TS [id number]) Physical Therapy Treatment Education Education Provided Precautions,Weight Bearing Status,Post-Op Packet,Safety Other Treatments Other Treatment Performed Pt recalled 2/3 precautions, hip flexion and hip adduction. M7 PT-IP Assessment and Plan Start: 01/16/23 11:44 Freq: NEEDED Status: Active Protocol: Document 01/18/23 14:40 TS (Rec: 01/18/23 15:07 TS [id number]) PT Summary Assessment and Plan Potential Rehabilitation Potential Fair Status of Condition at Evaluation Stable Summary Impairments Pain,ROM,Strength,Balance, Cognition,Bed Mobility, Transfers,Gait,Activity Tolerance Progress Towards Goals Slow Progress due to Pain,Slow Progress due to Activity Tolerance Assessment Summary Pt recalled 2/3 precautions this session, requires consistent cueing throughout session of hip flexion precaution. Pt continues to have difficulty following single step instructions, is impulsive to move. He ambulates with poor balance due to toe touch on RLE from not being able to fully extend knee. Pt will require SNF to improve transfers, gait and education on hip precaution and post-op exercises. Goals Bed Mobility Goal Standby Assistance Transfer Goal Standby Assistance Gait Goal Contact Guard Assistance Gait Distance 50 Other Goals Patient will be able to recall posterior hip precautions without cues. Patient will be able to propel self in w/c with UE's/LE's without breaking hip precautions without cues. Days to Meet Goals 3 Frequency of Treatment Frequency Of Treatment Twice a Day Treatment Plan Physical Therapy Treatment Plan Bed Mobility Training,Transfer Training,Gait Training, Therapeutic Exercise,Balance Retraining,Post Op Education, Discharge Planning,Hot or Cold Pack Other Recommendations and Next Treatment Progress transfers, gait with Focus FWW, review precautions and HEP. 1 step cues. Precautions Posterior Hip Precautions No Hip Flexion > 90 degrees,No Hip Internal Rotation,No Hip Adduction Weight Bearing Status Weight Bearing Status Weight Bear as Tolerated Recommendations To Nursing Amount of Assist Needed 1 Person Assist Discharge Recommendations PT Discharge Recommendations SNF Rehab Transportation Needs at Discharge Wheelchair/Cabulance
--- NOTE | 2023-01-18 15:25 | OT.IP.TRT ---
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) Unspecified intracranial injury with loss of consciousness status unknown, initial encounter (01/15/23) Presence of unspecified artificial hip joint (01/15/23) Surgery Performed Operation Date: 01/15/23 14:15 Actual Procedures p Total Hip Arthroplasty(Right) - Alexus Arnold MD Occupational Therapy Treatment Note M2 OT-IP Current Condition Start: 01/17/23 16:52 Freq: Status: Active Protocol: Document 01/17/23 15:25 [facility] (Rec: 01/17/23 17:19 [facility] [id number]) Occupational Therapy Current Condition Current Condition Evaluation Date 01/17/23 Treatment Diagnosis S/p R MARIA ALEJANDRA Diagnosis Onset Date 01/15/23 Post Operative Precautions Posterior Hip Precautions No Hip Flexion > 90 degrees,No Hip Internal Rotation,No Hip Adduction Weight Bearing Status Weight Bearing Status Weight Bear as Tolerated M3 OT- IP Subjective and Pain Start: 01/17/23 16:52 Freq: Status: Active Protocol: Document 01/18/23 15:02 [facility] (Rec: 01/18/23 15:38 [facility] [id number]) OT- Subjective Occupational Therapy Visit Type Type Treatment Note Visit Start Time 15:02 Visit Stop Time 15:25 Total Visit Minutes 23 Occupational Therapy Visit Comments Patient Comments Pt agreed to get up to the recliner and having to use the urinal. Patient/Caregiver Goals To go to skilled rehab. OT Pain Assessment Pain When Pain Assessed At Rest Pain Present Pain Present Pain Reported Location Right Knee Intensity 8 Scale Used Numeric (0 - 10) Description Burning M4 OT- IP ADL's Start: 01/17/23 16:52 Freq: Status: Active Protocol: Document 01/18/23 15:02 [facility] (Rec: 01/18/23 15:38 [facility] [id number]) OT ADL-Grooming Comments OT Grooming Comments Not performed. OT ADL-Oral Care Comments Oral Care Comments Not performed. OT ADL-Dressing General Eval Lower Body Dressing Ability Maximum Assistance Comments OT Dressing Comments Pt will need MAX A for all LB dressing needs. OT ADL-Toileting General Evaluation Toileting Ability Minimal Assistance,Maximum Assistance Comments OT Toileting Comments Pt needing assist to hold the urinal in place and able to wipe himself after set-up of wash cloth. Pt will need MAXA after bowel movement for hygiene and clothing management needs. OT ADL-Bathing Comments OT Bathing Comments Pt states his facility takes him to the shower room. M5 OT- IP IADL's Start: 01/17/23 16:52 Freq: Status: Active Protocol: Document 01/17/23 15:25 [facility] (Rec: 01/17/23 17:19 [facility] [id number]) OT-Instrumental Activities of Daily Living Home Safety Awareness Awareness of Need for Assistance at Home Decreased Awareness Home Safety Comments Pt needing increased time to process and follow directions and unable to recall his hip precautions. Medication Management Medication Management Caregiver Administers Money Management Money Management Caregiver Provides Assistance Meal Preparation Meal Preparation Caregiver Provides Assist Auto Body Detailer Auto Body Detailer Caregiver Provides Assist M6 OT- IP Functional Cognition Start: 01/17/23 16:52 Freq: Status: Active Protocol: Document 01/18/23 15:02 [facility] (Rec: 01/18/23 15:38 [facility] [id number]) Cognitive Factors Limiting Selfcare Function Cognitive Ability Level of Alertness Alert Patient Orientation Name,Place,Situation Attention Span Ability Capable of Focused Attention, Capable of Sustained Attention Ability to Follow Commands Able to Follow One Step Commands with Increased Time, Able to Follow One Step Commands with Repetition Memory Description Short Term Impaired Safety Awareness Decreased Recall of Precautions,Decreased Ability to Apply Precautions, Underestimates Need for Assistance Cognitive Comments Cognitive Assessment Comments Pt needing continuous vc to follow his hip precautions as he is very forgetful during all ADl and mobility needs. Pt needing safety cues to incorporate his precautions for all needs. M7 OT- IP Mobility and Balance Start: 01/17/23 16:52 Freq: Status: Active Protocol: Document 01/18/23 15:02 [facility] (Rec: 01/18/23 15:38 [facility] [id number]) OT- Bed Mobility Assessment Supine to Sit Supine to Sit Assist Minimal Assistance Scooting Scooting to Edge of Bed Moderate Assistance OT-Transfer Assessment Sit to and From Stand Sit to and from Stand Minimal Assistance Transfers Transfer Ability Minimal Assistance Comments Mobility Comments DIAMOND to keep from pt from leaning to far forwards and educating pt to put his hands behind him to scoot forwards instead on bending at the waist. DIAMOND to stand to FWW and vc to keep his right foot forwards while coming to stand . DIAMOND to transfer with the FWW to the recliner. Pt tends to hop on his left foot and putting minimal weight on his right foot/leg. OT- Balance Assessment Sitting Balance and Reactions Static Sitting Balance Ability Good Dynamic Sitting Balance Ability Fair Standing Balance and Reactions Static Standing Balance Ability Fair Dynamic Standing Balance Ability Fair M8 OT- IP Objective Assessments Start: 01/17/23 16:52 Freq: Status: Active Protocol: Document 01/17/23 15:25 [facility] (Rec: 01/17/23 17:19 [facility] [id number]) OT-Muscle Tone Assessment Comments Muscle Tone Comments Noted Right LE spasms, able to notify nursing in addition to pt's complaining of having a itchy back. M9 OT- IP Assessment and Plan Start: 01/17/23 16:52 Freq: Status: Active Protocol: Document 01/18/23 15:02 [facility] (Rec: 01/18/23 15:38 [facility] [id number]) OT Summary Assessment and Plan Potential Rehabilitation Potential Good Analytic Complexity at Evaluation Low Summary OT Impairments Pain,Strength,Balance, Functional Cognition, Functional Mobility,Dressing, Toileting,Bathing,Toilet Transfers,Shower Transfers, Activity Tolerance Progress Towards Goals Progressing Toward Goals Assessment Summary Pt moving better but still needing assist to follow and remind him of his hip precautions as pt not able to remember. Able to put a posterior precaution paper in front of him to continue to see to try to remember. Pt complaining of his right knee pain and pain when urinating, nursing notified. Goals Self-Feeding Goal Independent Grooming Goal Independent Dressing Goal Moderate Assistance Toileting Goal Moderate Assistance Bathing Goal Moderate Assistance Toilet Transfer Goal Contact Guard Assistance Shower Transfer Goal Minimal Assistance Days to Meet Goals 10 Frequency of Treatment Frequency Of Treatment Once a Day Treatment Plan OT Treatment Plan ADL Training,Functional Mobility,Patient/Family Education,Discharge Planning Other Treatment Recommendations and Next DIAMOND to [facility] with FWW Treatment Focus Discharge Recommendations OT Discharge Recommendations SNF Rehab Other Discharge Recommendations If pt improves and if able to get increased assist from his facility possibly home with available assist but not 1: 1 and home health. Transportation Needs at Discharge Wheelchair/Cabulance
[2023-01-18] MEDS: RIVAROXABAN 10 MG TABLET 20 MG PO (16:41)
[2023-01-18] MEDS: TRAZODONE 50 MG TABLET PO (21:25)
[2023-01-19] VITALS (13 sets, daily range): BP systolic 101–163; BP diastolic 62–98; PULSE 85–104; RESP 16–24; TEMP 36.2–37.1; O2SAT 94–100
[2023-01-19] MEDS: ALBUTEROL 2.5 MG/3 ML NEB (ADULT) INH ×2 (01:36→19:51)
[2023-01-19] MEDS: OXYCODONE IR 10 MG TABLET PO ×3 (02:47→14:13)
[2023-01-19] MEDS: IBUPROFEN 400 MG TABLET PO ×6 (02:47→21:15)
[2023-01-19] MEDS: ACETAMINOPHEN 325 MG TABLET 650 MG PO ×3 (05:50→18:46)
[2023-01-19] MEDS: CYCLOBENZAPRINE 10 MG TABLET 5 MG PO ×4 (06:54→17:09)
[2023-01-19] MEDS: BUDESONIDE 0.5 MG/2 ML NEB INH ×2 (07:38→19:51)
[2023-01-19] MEDS: ALBUTEROL/IPRATROPIUM 3 ML AMPUL INH ×2 (07:38→13:46)
[2023-01-19] MEDS: lisinopriL 20 MG TABLET PO (08:26)
[2023-01-19] MEDS: FUROSEMIDE 20 MG TABLET PO (08:26)
[2023-01-19] MEDS: GABAPENTIN 300 MG CAPSULE PO ×3 (08:26→21:14)
[2023-01-19] MEDS: METOPROLOL ER 25 MG TABLET PO (08:27)
[2023-01-19] MEDS: DOCUSATE 100 MG CAPSULE PO ×2 (08:27→21:14)
--- NOTE | 2023-01-19 08:40 | PT.IPTN ---
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) Unspecified intracranial injury with loss of consciousness status unknown, initial encounter (01/15/23) Presence of unspecified artificial hip joint (01/15/23) Surgery Performed Operation Date: 01/15/23 14:15 Actual Procedures p Total Hip Arthroplasty(Right) - Alexus Arnold MD Physical Therapy Treatment Note M2 PT-IP Current Condition Start: 01/16/23 11:44 Freq: NEEDED Status: Active Protocol: Document 01/17/23 07:52 SP (Rec: 01/17/23 11:58 SP [id number]) Physical Therapy Current Condition Current Condition Evaluation Date 01/16/23 Treatment Diagnosis s/p L posterior MARIA ALEJANDRA Onset Date 01/15/23 M3 PT-IP Subjective Start: 01/16/23 11:44 Freq: NEEDED Status: Active Protocol: Document 01/19/23 09:37 TS (Rec: 01/19/23 10:00 TS [id number]) Subjective Physical Therapy Visit Type Type Treatment Note Visit Start Time 08:40 Visit Stop Time 09:09 Total Visit Minutes 29 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 Pt continues to c/o pain in L knee, L hand and R knee continues to be warm to the touch. Therapy Pain Assessment Pain When Pain Assessed At Rest Pain Present Pain Present Pain Reported M4 PT-IP Mobility and Gait Start: 01/16/23 11:44 Freq: NEEDED Status: Active Protocol: Document 01/19/23 09:37 TS (Rec: 01/19/23 10:00 TS [id number]) PT-Transfer Assessment Sit to and From Stand Sit to and from Stand Standby Assistance,Contact Guard Assistance Equipment Transfer Assistive Device Gait Belt,Front Wheeled Walker Orthotic/Prosthetic Devices or Brace: No Transfers Transfer Destination Wheelchair Transfer Technique Stand Step Pivot Transfer Ability Level of Assist Standby Assistance Comments Mobility Comments Pt found resting in chair, agreeable to Pt session. Pt recalled 1/3 hip precautions pre-treatment, 2/3 post- treatment(adduction and hip flexion). Pt performed sit to stand x1 from chair SBA with LUE on arm of chair and leaning heavily on front of FWW with RUE with flexed posture. Stand step pivot transfer SBA to W/C, pt demonstrated some carryover of sequencing. Pt propelled w/c ~100' in hallway with BUE and LLE before requiring 30 sec rest break for fatigue. Pt propelled w/c another 50' SBA before therapist returned to room. HE performed another sit to stand from the w/c SBA, again leaning heavily on FWW with RUE to come into standing . Pt was left in bed with call light nearby, tray table, all needs met. Gait Assessment Gait Distance (Feet) 3 Assistive Devices Assistive Device Front Wheeled Walker Orthotic/Prosthetic Devices or Brace: No Gait Deviations General Gait Pattern Antalgic,Decreased Stride Length,Decreased Feet Clearance,Flexed Trunk,Wide Based Gait Factors Limiting Gait Function Factors Limiting Gait Function Decreased Activity Tolerance, Decreased Strength,Difficulty Following Directions,Limited Range of Motion,Pain,Poor Balance,Poor Safety Awareness Comments Gait Comments Stand step pivot transfer. Stair Climbing Assessment Comments Stair Climbing Comments no stairs need to assess. PT-Balance Assessment Sitting Balance and Reactions Static Sitting Balance Ability Good Dynamic Sitting Balance Ability Fair Standing Balance and Reactions Static Standing Balance Ability Fair Dynamic Standing Balance Ability Fair Device Used FWW M5 PT-IP Objective Assessments Start: 01/16/23 11:44 Freq: NEEDED Status: Active Protocol: Document 01/16/23 11:44 ES (Rec: 01/16/23 12:00 ES [id number]) Orientation Orientation/Cognition Level of Alertness Alert Orientation Name,Age,Birthday,Month,Year, Place Language Function Ability No Deficits Noted Safety Awareness Decreased Safety Awareness Memory Description Short Term Impaired Gross Range of Motion Upper Extremity ROM Assessment Within Functional Limits Lower Extremity ROM Assessment Bilaterally Impaired Impairments R hip limited 2/2 precautions. R knee appears to bed contracted to ~20 degrees. B ankle mobility limited. Strength Upper Extremity Strength Assessment Within Functional Limits Lower Extremity Strength Assessment Bilaterally Impaired Comments Strength Comments R LE grossly 3-/5. L LE grossly 4/5. Coordination Assessment Gross Coordination Gross Coordination WNL M6 PT-IP Treatment Start: 01/16/23 11:44 Freq: NEEDED Status: Active Protocol: Document 01/19/23 09:37 TS (Rec: 01/19/23 10:00 TS [id number]) Physical Therapy Treatment Education Education Provided Precautions,Weight Bearing Status,Post-Op Packet,Safety Other Treatments Other Treatment Performed Pt recalled 1/3 precautions pre-treatment(adduction), 2/3 post treatment(hip flexion, adduction) M7 PT-IP Assessment and Plan Start: 01/16/23 11:44 Freq: NEEDED Status: Active Protocol: Document 01/19/23 09:37 TS (Rec: 01/19/23 10:00 TS [id number]) PT Summary Assessment and Plan Potential Rehabilitation Potential Fair Status of Condition at Evaluation Stable Summary Impairments Pain,ROM,Strength,Balance, Cognition,Bed Mobility, Transfers,Gait,Activity Tolerance Progress Towards Goals Slow Progress due to Pain,Slow Progress due to Activity Tolerance Assessment Summary Pt continues to have difficulty recalling hip precautions, he recalled 1/3 pre-treatment, 2/3 post treatment. Pt needs heavy cueing to stay on task and for hip precautions throughout session, becomes easily distracted by his environment. Pt did progress to SBA for sit to stands this session, he leans heavily on FWW coming into standing, requires cues for hip flexion precaution and has poor balance. Jakob typically uses w/c at [place] for ambulation, he propelled in the w/c ~150, fatigued requiring rest break before returning to room. PT continues to recommend SNF at this time due to pts cognitive function and requiring constant reminders and cues during treatment. Goals Bed Mobility Goal Standby Assistance Transfer Goal Standby Assistance Gait Goal Contact Guard Assistance Gait Distance 50 Other Goals Patient will be able to recall posterior hip precautions without cues. Patient will be able to propel self in w/c with UE's/LE's without breaking hip precautions without cues. Days to Meet Goals 3 Frequency of Treatment Frequency Of Treatment Twice a Day Treatment Plan Physical Therapy Treatment Plan Bed Mobility Training,Transfer Training,Gait Training, Therapeutic Exercise,Balance Retraining,Post Op Education, Discharge Planning,Hot or Cold Pack Other Recommendations and Next Treatment Progress transfers, gait with Focus FWW, review precautions and HEP. 1 step cues. Continue to use w/c. Precautions Posterior Hip Precautions No Hip Flexion > 90 degrees,No Hip Internal Rotation,No Hip Adduction Weight Bearing Status Weight Bearing Status Weight Bear as Tolerated Recommendations To Nursing Amount of Assist Needed Independent Discharge Recommendations PT Discharge Recommendations SNF Rehab Transportation Needs at Discharge Wheelchair/Cabulance
--- NOTE | 2023-01-19 10:14 | DI.US.S_ITS ---
PROCEDURE: US PERIPH VENOUS LOW EXTREM RT INDICATIONS: CALF SWELLING. POST MARIA ALEJANDRA. TECHNIQUE: Real-time imaging, as well as color and pulse Doppler interrogation, were performed of the lower extremity deep veins from the inguinal ligament to the popliteal fossa. COMPARISON: None. FINDINGS: The common femoral, femoral and popliteal veins are normally compressible, and free of intraluminal thrombus. Color and pulse Doppler demonstrate normal phasic intraluminal flow. There is normal augmentation response to distal compression maneuver. The visualized portions of the superficial femoral vein are within normal limits. Moderate soft tissue edema can be seen at the level of the ankle. This study is limited by difficulty with patient positioning and with holding still for the examination. Evaluation is further limited by lower extremity edema. IMPRESSION: Limited study demonstrating no findings of deep venous thrombosis. Dictated by: Jose Carlos Kelley M.D. on 01/19/2023 at 16:03 Approved by: Jose Carlos Kelley M.D. on 01/19/2023 at 16:04
--- NOTE | 2023-01-19 10:15 | PM.PNPO.1 ---
Subjective Subjective Date Patient Seen: 01/19/23 Time Patient Seen: 10:15 Interval history: Sitting up in chair, c/o not feeling great today. Wondering about where he will be going from here. Spoke to case management this morning, still unclear, though it sounds like they are trying to get him back to his [facility]. Exam Vital Signs (past 8 hours): - 01/19/23 02:41 01/19/23 02:57 01/19/23 08:26 Temperature 97.2 F L 97.2 F L Pulse Rate 88 88 94 H Respiratory Rate 18 18 Blood Pressure 120/71 120/71 163/98 H Pulse Oximetry 94 94 Oxygen Delivery Method Oxygen Flow Rate 0 0 01/19/23 08:27 01/19/23 07:38 01/19/23 07:47 Temperature Pulse Rate 94 H 104 H 98 H Respiratory Rate 24 22 Blood Pressure 163/98 H Pulse Oximetry 94 Oxygen Delivery Method Room Air Room Air Oxygen Flow Rate Fraction of Inspired Oxygen 21 SaO2/FiO2 Ratio 457 Oxygen Delivery Method Room Air Oxygen Flow Rate 0 Narrative Exam Narrative: 3/5 PF, hip flexion, quadriceps, hamstrings; 5/5 DF and EHL on right. Sensation to light touch intact throughout RLE. Right calf is edematous, 1+ pitting, warm, erythematous past knee. Left calf is soft, compressible, no edema. Aquacel dressing CDI. Objective Labs 01/18/23 08:19 01/18/23 08:19 [facility] Medical History Anoxic brain damage Asthma Atrial fibrillation and flutter CAD (coronary artery disease) COPD (chronic obstructive pulmonary disease) GERD (gastroesophageal reflux disease) History of developmental delay HLD (hyperlipidemia) HTN (hypertension) Melena Osteoarthritis PAF (paroxysmal atrial fibrillation) Proctocolitis (11/2022) Suspected sleep apnea TBI (traumatic brain injury) Surgical History History of nasal surgery Hx of hernia repair Social History household members: none Smoking Status: Former smoker alcohol intake: never Assessment & Plan Post-op Assessment and plan (1) S/P total hip arthroplasty: Assessment and Plan narrative: In review of PE notes over the past few days, I think there has been a change in his RLE exam. He is chronically anticoagulated on Xarelto, and thiis was held preoperatively and just restarted last night. I will order an ultrasound to r/o RLE DVT. We will continue to follow up w/ CM regarding disposition. Continue WBAT on RLE with posterior hip precautions. Postoperative Procedures: Procedures Operation Date: 01/15/23 14:15 Actual Procedure Side Surgeon p Total Hip Arthroplasty Right Alexus Arnold MD Postoperative day: 4 Quality VTE Deep Vein Thrombosis/Pulmonary Embolism Present on Admission: No
--- NOTE | 2023-01-19 13:28 | PT.IPTN ---
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) Unspecified intracranial injury with loss of consciousness status unknown, initial encounter (01/15/23) Presence of unspecified artificial hip joint (01/15/23) Surgery Performed Operation Date: 01/15/23 14:15 Actual Procedures p Total Hip Arthroplasty(Right) - Alexus Arnold MD Physical Therapy Treatment Note M2 PT-IP Current Condition Start: 01/16/23 11:44 Freq: NEEDED Status: Active Protocol: Document 01/17/23 07:52 SP (Rec: 01/17/23 11:58 SP [id number]) Physical Therapy Current Condition Current Condition Evaluation Date 01/16/23 Treatment Diagnosis s/p L posterior MARIA ALEJANDRA Onset Date 01/15/23 M3 PT-IP Subjective Start: 01/16/23 11:44 Freq: NEEDED Status: Active Protocol: Document 01/19/23 14:07 TS (Rec: 01/19/23 14:30 TS [id number]) Subjective Physical Therapy Visit Type Type Treatment Note Visit Start Time 13:28 Visit Stop Time 13:47 Total Visit Minutes 19 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 Therapy Pain Assessment Pain When Pain Assessed At Rest Pain Present Pain Present Pain Reported M4 PT-IP Mobility and Gait Start: 01/16/23 11:44 Freq: NEEDED Status: Active Protocol: Document 01/19/23 14:07 TS (Rec: 01/19/23 14:30 TS [id number]) PT-Transfer Assessment Sit to and From Stand Sit to and from Stand Standby Assistance Equipment Transfer Assistive Device Gait Belt,Front Wheeled Walker Orthotic/Prosthetic Devices or Brace: No Transfers Transfer Destination Wheelchair Transfer Technique Stand Step Pivot Transfer Ability Level of Assist Standby Assistance Comments Mobility Comments Pt found resting up in chair, agreeable ot PT session. Sit to stand SBA w/FWW BUE support on arms of chair. He stood with flexed posture leaning on FWW, requires cues for upright posture and WBAT. He performed stand step pivot transfer to w/c SBA with FWW, leaning heavily forward. Pt propelled w/c with UEs and LLE ~100' SBA, required rest break ~30 secs, continued another 100' SBA before requiring assistance back to room. Pt was left in chair with chair alarm on, call light nearby with respitatory for treatment. Gait Assessment Comments Gait Comments Stand pivot transfer x2. PT-Balance Assessment Sitting Balance and Reactions Static Sitting Balance Ability Good Dynamic Sitting Balance Ability Fair Standing Balance and Reactions Static Standing Balance Ability Fair Dynamic Standing Balance Ability Fair Device Used FWW M5 PT-IP Objective Assessments Start: 01/16/23 11:44 Freq: NEEDED Status: Active Protocol: Document 01/16/23 11:44 ES (Rec: 01/16/23 12:00 ES [id number]) Orientation Orientation/Cognition Level of Alertness Alert Orientation Name,Age,Birthday,Month,Year, Place Language Function Ability No Deficits Noted Safety Awareness Decreased Safety Awareness Memory Description Short Term Impaired Gross Range of Motion Upper Extremity ROM Assessment Within Functional Limits Lower Extremity ROM Assessment Bilaterally Impaired Impairments R hip limited 2/2 precautions. R knee appears to bed contracted to ~20 degrees. B ankle mobility limited. Strength Upper Extremity Strength Assessment Within Functional Limits Lower Extremity Strength Assessment Bilaterally Impaired Comments Strength Comments R LE grossly 3-/5. L LE grossly 4/5. Coordination Assessment Gross Coordination Gross Coordination WNL M6 PT-IP Treatment Start: 01/16/23 11:44 Freq: NEEDED Status: Active Protocol: Document 01/19/23 14:07 TS (Rec: 01/19/23 14:30 TS [id number]) Physical Therapy Treatment Education Education Provided Precautions,Weight Bearing Status,Post-Op Packet,Safety M7 PT-IP Assessment and Plan Start: 01/16/23 11:44 Freq: NEEDED Status: Active Protocol: Document 01/19/23 14:07 TS (Rec: 01/19/23 14:30 TS [id number]) PT Summary Assessment and Plan Potential Rehabilitation Potential Good Status of Condition at Evaluation Stable Summary Impairments Pain,ROM,Strength,Balance, Cognition,Bed Mobility, Transfers,Gait,Activity Tolerance Progress Towards Goals Slow Progress due to Pain,Slow Progress due to Activity Tolerance Assessment Summary Pt continues to have difficulty recalling precautions, he recalled 2/3 this session(hip flexion and adduction). He becomes distracted easily and requires redirection to tasks, can follow single step instruction ~90% of the time. He contines to be SBA for sit to stands but leans heavily on FWW, requires cueing for flexion hip precaution. PT continues to recommend SNF at this time due to pts cognitive function and requiring constant reminders and cues during treatment.. Goals Bed Mobility Goal Standby Assistance Transfer Goal Standby Assistance Gait Goal Contact Guard Assistance Gait Distance 50 Other Goals Patient will be able to recall posterior hip precautions without cues. Patient will be able to propel self in w/c with UE's/LE's without breaking hip precautions without cues. Days to Meet Goals 3 Frequency of Treatment Frequency Of Treatment Twice a Day Treatment Plan Physical Therapy Treatment Plan Bed Mobility Training,Transfer Training,Gait Training, Therapeutic Exercise,Balance Retraining,Post Op Education, Discharge Planning,Hot or Cold Pack Other Recommendations and Next Treatment Progress transfers, gait with Focus FWW, review precautions and HEP. 1 step cues. Continue to use w/c. Precautions Posterior Hip Precautions No Hip Flexion > 90 degrees,No Hip Internal Rotation,No Hip Adduction Weight Bearing Status Weight Bearing Status Weight Bear as Tolerated Recommendations To Nursing Amount of Assist Needed Independent Discharge Recommendations PT Discharge Recommendations SNF Rehab Transportation Needs at Discharge Wheelchair/Cabulance
--- NOTE | 2023-01-19 14:48 | PC.NURSE ---
Addendum entered by Gerardo Wilson R.N. 01/19/23 17:47: As per discussion regarding change in patients edema, pain and erythemia of total RLE, no action to be taken at this time, will cont. to monitor. Addendum entered by Gerardo Wilson R.N. 01/19/23 16:05: call placed to Dr. Moses non emergency services ambulance driver, at [phone], call returned at [phone]. Report of patient given to Dr. Moses given patients change in condition. No further orders are given until venous u/s study report is back. Dr. Moses states he will come see patient after is tasks in OR are complete. Original Note: patients knee has become increasingly swollen, Eythemic, and painful despite pain treatment. Call placed to u/s regarding orders of urgent u/s placed this morning, u/s tech states she will be there shortly despite the urgent order. Call placed to PA regarding change in patient's condition. PA deflects care to oncall provider Josué after u/s is done.
--- NOTE | 2023-01-19 16:02 | CM.DPNOTE ---
Discharge Planning Note: Patient up with PT today, see notes. He has cognitive deficits and they recommend SNF Rehab, however not able to secure SNF acceptance so plan will be to return to his [facility] in [place]. Nurses' notes state he has new onset right knee swelling, ultrasound pending. Plan: Contact [place] social media manager Rissa on Saturday to discuss discharge plan of returning patient with Home Health and perhaps a higher assistance level. Follow for needs. Clementine Hood RN/DCP
--- NOTE | 2023-01-19 16:49 | PM.PN.1 ---
Subjective Subjective Interval history: I was called to see the patient due to right leg swelling and pain. He had just completed a DVT ultrasound study. Exam Vital Signs (past 8 hours): - 01/19/23 13:36 01/19/23 13:46 Temperature 98.7 F Pulse Rate 98 H 98 H Respiratory Rate 16 22 Blood Pressure 129/62 Pulse Oximetry 94 98 Oxygen Delivery Method Room Air Fraction of Inspired Oxygen 21 SaO2/FiO2 Ratio 457 Oxygen Delivery Method Room Air Oxygen Flow Rate 0 Narrative Exam Narrative: The patient was examined while resting comfortably in bed. When I entered the room he was sleeping. He is on his back and essentially a position with both knees bent. Leg rotation and length appears equal to the opposite side. There is moderate cutaneous redness around the knee and 2 to 3+ pitting edema below the knee to the foot. Sensation in the foot is intact. Skin in the lower leg is cool. Calf is soft. There is some increased cutaneous temperature in the red area around the knee. The knee itself has no effusion and is not tender. Objective Imaging Venous US: My impression: I spoke to the laser technician who performed the study. She stated it was a limited study due to inability of the patient to fully cooperate with the exam and move to appropriate positions however all scanned veins were negative for deep venous thrombosis. Labs 01/18/23 08:19 01/18/23 08:19 [facility] Medical History Anoxic brain damage Asthma Atrial fibrillation and flutter CAD (coronary artery disease) COPD (chronic obstructive pulmonary disease) GERD (gastroesophageal reflux disease) History of developmental delay HLD (hyperlipidemia) HTN (hypertension) Melena Osteoarthritis PAF (paroxysmal atrial fibrillation) Proctocolitis (11/2022) Suspected sleep apnea TBI (traumatic brain injury) Surgical History History of nasal surgery Hx of hernia repair Social History household members: none Smoking Status: Former smoker alcohol intake: never Assessment & Plan Assessment & Plan narrative: He has right leg swelling with mild redness. He does not appear to have a septic knee. By available evidence he does not appear to have a deep venous thrombosis. I spoke with Dr. Arnold, she notes that the patient did have asymmetrical pitting edema with the right side being worse than the left in the preoperative area prior to surgery. We will observe this to make sure that there is no progression, no intervention is immediately planned. Quality VTE Deep Vein Thrombosis/Pulmonary Embolism Present on Admission: No
[2023-01-19] MEDS: RIVAROXABAN 10 MG TABLET 20 MG PO (17:10)
[2023-01-19] MEDS: TRAZODONE 50 MG TABLET PO (21:14)
[2023-01-20] VITALS (14 sets, daily range): BP systolic 96–132; BP diastolic 57–89; PULSE 65–100; RESP 18–20; TEMP 36.3–36.7; O2SAT 85–95
[2023-01-20] MEDS: CYCLOBENZAPRINE 10 MG TABLET 5 MG PO ×5 (01:10→23:47)
[2023-01-20] MEDS: ACETAMINOPHEN 325 MG TABLET 650 MG PO ×5 (01:11→23:46)
[2023-01-20] MEDS: hydrOXYzine pamoate 25 MG CAPSULE PO ×2 (01:12→20:55)
[2023-01-20] MEDS: ALBUTEROL 2.5 MG/3 ML NEB (ADULT) INH ×2 (01:12→09:53)
[2023-01-20] MEDS: IBUPROFEN 400 MG TABLET PO ×5 (03:03→23:47)
[2023-01-20] MEDS: OXYCODONE IR 10 MG TABLET PO ×2 (03:03→20:54)
[2023-01-20] MEDS: ALBUTEROL/IPRATROPIUM 3 ML AMPUL INH ×3 (07:02→19:10)
[2023-01-20] MEDS: BUDESONIDE 0.5 MG/2 ML NEB INH ×2 (07:03→19:10)
--- NOTE | 2023-01-20 09:17 | P.PN_ITS ---
Subjective Subjective Interval history: The patient is feeling better this morning. Exam Vital Signs (past 8 hours): - 01/20/23 04:00 01/20/23 07:08 01/20/23 07:30 Temperature 97.8 F Pulse Rate 86 Respiratory Rate 18 Blood Pressure 118/86 Pulse Oximetry 93 85 L 93 Oxygen Delivery Method Room Air Room Air Fraction of Inspired Oxygen 21 SaO2/FiO2 Ratio 457 Oxygen Delivery Method Room Air Oxygen Flow Rate 0 Narrative Exam Narrative: He is examined while seated at bedside. Leg swelling is slightly improved since yesterday. The erythema around the knee is slightly improved since yesterday. Light touch and motion are intact in the right lower extremity. Length and rotation of the lower extremity appear appropriate. Objective Labs 01/18/23 08:19 01/18/23 08:19 [facility] Medical History Anoxic brain damage Asthma Atrial fibrillation and flutter CAD (coronary artery disease) COPD (chronic obstructive pulmonary disease) GERD (gastroesophageal reflux disease) History of developmental delay HLD (hyperlipidemia) HTN (hypertension) Melena Osteoarthritis PAF (paroxysmal atrial fibrillation) Proctocolitis (11/2022) Suspected sleep apnea TBI (traumatic brain injury) Surgical History History of nasal surgery Hx of hernia repair Social History household members: none Smoking Status: Former smoker alcohol intake: never Assessment & Plan Post-op Postoperative Procedures: Procedures Operation Date: 01/15/23 14:15 Actual Procedure Side Surgeon p Total Hip Arthroplasty Right Alexus Arnold MD Postoperative day: 5 Postoperative status: doing well Postoperative status narrative: His leg has slightly improved with the swelling since yesterday. It now appears to be equal in terms of edema to the opposite side. He is afebrile. He has a significant cognitive impairment which limits his options for discharge. Unfortunately discharge planning has been unable to locate a custodial facility in a [facility] area that will be able to take him. Currently the plan is for him to discharge to assisted living with home health. He needs additional physical therapy to make that safe. This will likely be tomorrow at the earliest. Postoperative plan: routine post-op care, ambulate and discharge (Planning for discharge to his assisted living with home health tomorrow.) Postoperative plan narrative: As noted above, due to his cognitive impairment and slow progress after total hip replacement, he requires an additional day in the hospital before being discharged. If a custodial facility was available to take him, he could probably go today, however they are not. As we are sending him to assisted living with home health physical therapy. The earliest he will be able to go home as tomorrow. Time Spent With Patient Time with patient: 15-24 minutes Quality VTE Deep Vein Thrombosis/Pulmonary Embolism Present on Admission: No
[2023-01-20] MEDS: GABAPENTIN 300 MG CAPSULE PO ×3 (10:08→20:54)
[2023-01-20] MEDS: DOCUSATE 100 MG CAPSULE PO ×2 (10:08→20:54)
[2023-01-20] MEDS: lisinopriL 20 MG TABLET PO (10:08)
[2023-01-20] MEDS: METOPROLOL ER 25 MG TABLET PO (10:09)
[2023-01-20] MEDS: FUROSEMIDE 20 MG TABLET PO (10:09)
--- NOTE | 2023-01-20 10:28 | PT.IPTN ---
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) Unspecified intracranial injury with loss of consciousness status unknown, initial encounter (01/15/23) Presence of unspecified artificial hip joint (01/15/23) Surgery Performed Operation Date: 01/15/23 14:15 Actual Procedures p Total Hip Arthroplasty(Right) - Alexus Arnold MD Physical Therapy Treatment Note M2 PT-IP Current Condition Start: 01/16/23 11:44 Freq: NEEDED Status: Active Protocol: Document 01/17/23 07:52 SP (Rec: 01/17/23 11:58 SP [id number]) Physical Therapy Current Condition Current Condition Evaluation Date 01/16/23 Treatment Diagnosis s/p L posterior MARIA ALEJANDRA Onset Date 01/15/23 M3 PT-IP Subjective Start: 01/16/23 11:44 Freq: NEEDED Status: Active Protocol: Document 01/20/23 10:10 KS (Rec: 01/20/23 12:16 KS [id number]) Subjective Physical Therapy Visit Type Type Treatment Note Visit Start Time 10:10 Visit Stop Time 10:28 Total Visit Minutes 18 Number of ECHOCARDIOGRAPHY RADIOLOGY TECHNOLOGIST Visits 8 Physical Therapy Visit Comments Patient Comments Pt continues to report concern about inflammation in R knee, has some pain in R hip and L knee. M4 PT-IP Mobility and Gait Start: 01/16/23 11:44 Freq: NEEDED Status: Active Protocol: Document 01/20/23 10:10 KS (Rec: 01/20/23 12:16 KS [id number]) PT-Transfer Assessment Comments Mobility Comments Pt in chair and comfortable, just got in chair and not wanting to transfer to bed but agreeable to exercises. Able to complete ankle pumps, quad sets, heel slides minimally. Needs frequent verbal and tactile cues, c/o pain w/ movement. PT-Balance Assessment Sitting Balance and Reactions Static Sitting Balance Ability Good Dynamic Sitting Balance Ability Fair M5 PT-IP Objective Assessments Start: 01/16/23 11:44 Freq: NEEDED Status: Active Protocol: Document 01/16/23 11:44 ES (Rec: 01/16/23 12:00 ES [id number]) Orientation Orientation/Cognition Level of Alertness Alert Orientation Name,Age,Birthday,Month,Year, Place Language Function Ability No Deficits Noted Safety Awareness Decreased Safety Awareness Memory Description Short Term Impaired Gross Range of Motion Upper Extremity ROM Assessment Within Functional Limits Lower Extremity ROM Assessment Bilaterally Impaired Impairments R hip limited 2/2 precautions. R knee appears to bed contracted to ~20 degrees. B ankle mobility limited. Strength Upper Extremity Strength Assessment Within Functional Limits Lower Extremity Strength Assessment Bilaterally Impaired Comments Strength Comments R LE grossly 3-/5. L LE grossly 4/5. Coordination Assessment Gross Coordination Gross Coordination WNL M6 PT-IP Treatment Start: 01/16/23 11:44 Freq: NEEDED Status: Active Protocol: Document 01/20/23 10:10 KS (Rec: 01/20/23 12:16 KS [id number]) Physical Therapy Treatment Exercises Exercises Ankle Pumps,Quad Sets,Heel Slides Education Education Provided Precautions,Weight Bearing Status,Post-Op Packet,Safety Other Treatments Other Treatment Performed Recalled 2/3 prec. (NO IR) M7 PT-IP Assessment and Plan Start: 01/16/23 11:44 Freq: NEEDED Status: Active Protocol: Document 01/20/23 10:10 KS (Rec: 01/20/23 12:16 KS [id number]) PT Summary Assessment and Plan Potential Rehabilitation Potential Good Summary Impairments Pain,ROM,Strength,Balance, Cognition,Bed Mobility, Transfers,Gait,Activity Tolerance Progress Towards Goals Slow Progress due to Pain,Slow Progress due to Activity Tolerance,Slow Progress - Other Assessment Summary Pt remains limited by pain, weakness, and coginitive issues. Some difficulty following direction but responds well to frequent verbal and tactile cues as well as demonstration. Will continue to assess progress, at this time unsafe to return home and would benefit from SNF. Goals Bed Mobility Goal Standby Assistance Transfer Goal Standby Assistance Gait Goal Contact Guard Assistance Gait Distance 50 Other Goals Patient will be able to recall posterior hip precautions without cues. Patient will be able to propel self in w/c with UE's/LE's without breaking hip precautions without cues. Days to Meet Goals 3 Frequency of Treatment Frequency Of Treatment Twice a Day Treatment Plan Physical Therapy Treatment Plan Bed Mobility Training,Transfer Training,Gait Training, Therapeutic Exercise,Balance Retraining,Post Op Education, Discharge Planning,Hot or Cold Pack Other Recommendations and Next Treatment Progress transfers, gait with Focus FWW, review precautions and HEP. 1 step cues. Continue to use w/c. Precautions Posterior Hip Precautions No Hip Flexion > 90 degrees,No Hip Internal Rotation,No Hip Adduction Weight Bearing Status Weight Bearing Status Weight Bear as Tolerated Recommendations To Nursing Amount of Assist Needed 1 Person Assist Discharge Recommendations PT Discharge Recommendations SNF Rehab Transportation Needs at Discharge Wheelchair/Cabulance
[2023-01-20] MEDS: OXYCODONE IR 5 MG TABLET PO ×2 (12:36→15:52)
--- NOTE | 2023-01-20 13:16 | CM.DPC ---
DCP Return to [facility] planning Per Ortho MD, pt had ultrasound and no DVT found and does not appear to be septic post surgery and just has swelling and likely stable for d/c tomorrow Mon. Per DIE CAST SUPERVISOR, pt making progress and could likely safely d/c back to [facility] with HH as SNF currently unable to be secured due to insurance and bed availability. PARVEEN called [facility] ([phone]) and spoke to Temitope who confirms both Rissa and their Admin Juli are not working today but will be back around 0800 tomorrow Mon morning and will need to review to confirm pt can return with HH at d/c. PARVEEN faxed updated clinicals with Ortho note and PT notes to fax [phone] and then also faxed to [phone] per Temitope's request. Plan: PARVEEN to follow closely in AM with [place] Admin Juli tomorrow Mon after review of updated clinicals to confirm plan of return with [facility] referral made and to call and update [facility] Tripath[facility]. Taty Lanza, BLOOD COORDINATOR
--- NOTE | 2023-01-20 14:42 | PT.IPTN ---
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) Unspecified intracranial injury with loss of consciousness status unknown, initial encounter (01/15/23) Presence of unspecified artificial hip joint (01/15/23) Surgery Performed Operation Date: 01/15/23 14:15 Actual Procedures p Total Hip Arthroplasty(Right) - Alexus Arnold MD Physical Therapy Treatment Note M2 PT-IP Current Condition Start: 01/16/23 11:44 Freq: NEEDED Status: Active Protocol: Document 01/17/23 07:52 SP (Rec: 01/17/23 11:58 SP [id number]) Physical Therapy Current Condition Current Condition Evaluation Date 01/16/23 Treatment Diagnosis s/p L posterior MARIA ALEJANDRA Onset Date 01/15/23 M3 PT-IP Subjective Start: 01/16/23 11:44 Freq: NEEDED Status: Active Protocol: Document 01/20/23 14:26 KS (Rec: 01/20/23 14:51 KS [id number]) Subjective Physical Therapy Visit Type Type Treatment Note Visit Start Time 14:26 Visit Stop Time 14:42 Total Visit Minutes 16 Number of SHOP HELPER Visits 9 Physical Therapy Visit Comments Patient Comments Pt concerned about BLE swelling Therapy Pain Assessment Pain When Pain Assessed During Mobility Pain Present Pain Present Pain Reported Location Right Hip Intensity 9 Scale Used Numeric (0 - 10) Pain Behaviors Facial Grimacing,Moaning, Wincing Pain Management Techniques Apply Cold,Distraction, Elevation,Re-positioning M4 PT-IP Mobility and Gait Start: 01/16/23 11:44 Freq: NEEDED Status: Active Protocol: Document 01/20/23 14:26 KS (Rec: 01/20/23 14:51 KS [id number]) PT-Transfer Assessment Sit to and From Stand Sit to and from Stand Minimal Assistance,1 Person Assistance,Use of Upper Extremities Equipment Transfer Assistive Device Gait Belt,Front Wheeled Walker Orthotic/Prosthetic Devices or Brace: No Transfers Transfer Destination Chair Transfer Technique Sit<>stand Transfer Ability Level of Assist Minimal Assistance,1 Person Assistance,Use of Upper Extremities Comments Mobility Comments Pt in chair upon arrival, not wanting to get back into bed. Required Min A for sit<>Stand, able to complete 5x sit<> Stands w/ Min A and perform marching in place during each stand ~15 seconds. Pt c/o 9/10 pain and requests to rest. Left reclined in chair w/ alarm on and all needs in reach. Concerned about calling friend, RN notified. Gait Assessment Comments Gait Comments March in place only PT-Balance Assessment Sitting Balance and Reactions Static Sitting Balance Ability Good Dynamic Sitting Balance Ability Fair Standing Balance and Reactions Static Standing Balance Ability Fair Dynamic Standing Balance Ability Poor Device Used FWW M5 PT-IP Objective Assessments Start: 01/16/23 11:44 Freq: NEEDED Status: Active Protocol: Document 01/16/23 11:44 ES (Rec: 01/16/23 12:00 ES [id number]) Orientation Orientation/Cognition Level of Alertness Alert Orientation Name,Age,Birthday,Month,Year, Place Language Function Ability No Deficits Noted Safety Awareness Decreased Safety Awareness Memory Description Short Term Impaired Gross Range of Motion Upper Extremity ROM Assessment Within Functional Limits Lower Extremity ROM Assessment Bilaterally Impaired Impairments R hip limited 2/2 precautions. R knee appears to bed contracted to ~20 degrees. B ankle mobility limited. Strength Upper Extremity Strength Assessment Within Functional Limits Lower Extremity Strength Assessment Bilaterally Impaired Comments Strength Comments R LE grossly 3-/5. L LE grossly 4/5. Coordination Assessment Gross Coordination Gross Coordination WNL M6 PT-IP Treatment Start: 01/16/23 11:44 Freq: NEEDED Status: Active Protocol: Document 01/20/23 14:26 KS (Rec: 01/20/23 14:51 KS [id number]) Physical Therapy Treatment Exercises Exercises Ankle Pumps Education Education Provided Precautions,Weight Bearing Status,Post-Op Packet,Safety Other Treatments Other Treatment Performed Recalled 1/3 prec. (No IR, No flex >90) M7 PT-IP Assessment and Plan Start: 01/16/23 11:44 Freq: NEEDED Status: Active Protocol: Document 01/20/23 14:26 KS (Rec: 01/20/23 14:51 KS [id number]) PT Summary Assessment and Plan Potential Rehabilitation Potential Good Summary Impairments Pain,ROM,Strength,Balance, Cognition,Bed Mobility, Transfers,Gait,Activity Tolerance Progress Towards Goals Slow Progress due to Pain,Slow Progress due to Activity Tolerance,Slow Progress - Other Assessment Summary Pt able to complete 5x sit<> stands w/ Min A w/ short bouts of marching in place suring each standing phase. He requires verbal and tactile cues for most tasks. Limited by high level of pain and weakness. Is high fall risk even during transfers and at this time will benefit from SNF to improve functional mobility independence. Goals Bed Mobility Goal Standby Assistance Transfer Goal Standby Assistance Gait Goal Contact Guard Assistance Gait Distance 50 Other Goals Patient will be able to recall posterior hip precautions without cues. Patient will be able to propel self in w/c with UE's/LE's without breaking hip precautions without cues. Days to Meet Goals 3 Frequency of Treatment Frequency Of Treatment Twice a Day Treatment Plan Physical Therapy Treatment Plan Bed Mobility Training,Transfer Training,Gait Training, Therapeutic Exercise,Balance Retraining,Post Op Education, Discharge Planning,Hot or Cold Pack Other Recommendations and Next Treatment Progress transfers, gait with Focus FWW, review precautions and HEP. 1 step cues. Continue to use w/c. Precautions Posterior Hip Precautions No Hip Flexion > 90 degrees,No Hip Internal Rotation,No Hip Adduction Weight Bearing Status Weight Bearing Status Weight Bear as Tolerated Recommendations To Nursing Amount of Assist Needed 1 Person Assist Discharge Recommendations PT Discharge Recommendations SNF Rehab Transportation Needs at Discharge Wheelchair/Cabulance
[2023-01-20] MEDS: RIVAROXABAN 10 MG TABLET 20 MG PO (16:00)
[2023-01-20] MEDS: TRAZODONE 50 MG TABLET PO (20:54)
[2023-01-21] VITALS (8 sets, daily range): BP systolic 103–132; BP diastolic 68–88; PULSE 84–102; RESP 16–21; TEMP 36.1–36.7; O2SAT 93–97
[2023-01-21] MEDS: ALBUTEROL 2.5 MG/3 ML NEB (ADULT) INH (01:27)
[2023-01-21] MEDS: IBUPROFEN 400 MG TABLET PO ×6 (03:19→23:27)
[2023-01-21] MEDS: OXYCODONE IR 10 MG TABLET PO ×3 (03:19→23:26)
[2023-01-21] MEDS: CYCLOBENZAPRINE 10 MG TABLET 5 MG PO ×4 (06:01→23:27)
[2023-01-21] MEDS: ACETAMINOPHEN 325 MG TABLET 650 MG PO ×4 (06:01→23:27)
[2023-01-21] MEDS: BUDESONIDE 0.5 MG/2 ML NEB INH ×2 (06:03→18:27)
[2023-01-21] MEDS: ALBUTEROL/IPRATROPIUM 3 ML AMPUL INH ×3 (06:03→18:27)
[2023-01-21] MEDS: FUROSEMIDE 20 MG TABLET PO (08:30)
[2023-01-21] MEDS: lisinopriL 20 MG TABLET PO (08:31)
[2023-01-21] MEDS: METOPROLOL ER 25 MG TABLET PO (08:31)
[2023-01-21] MEDS: DOCUSATE 100 MG CAPSULE PO ×2 (08:31→20:35)
[2023-01-21] MEDS: OXYCODONE IR 5 MG TABLET PO (08:31)
[2023-01-21] MEDS: GABAPENTIN 300 MG CAPSULE PO ×3 (08:31→20:35)
--- NOTE | 2023-01-21 08:52 | CM.DPC ---
Addendum entered by Paris Arnold R.N. 01/21/23 17:24: Cm spoke with Juli from [facility]- who stated that she needs to talk with her RN today to determine if they can accept the patient back but seems more willing with [facility] on board. CM called [facility] and send F2F and clinicals for there review... CM Team will follow up in the morning with Juli to determine if 10am DC to assisted living is still appropriate.... DC Rx and paperwork completed by Surgical team today and is on DCP desk for tomorrow morning. CM team will call [facility] in the morning and make sure they have all they need to start services for the patient. Paris Arnold manager gas Addendum entered by SIRI Farley 01/21/23 15:52: ADD: Call from [facility] Medicaid transport, confirmed pt is scheduled with [facility] [place] transport for cabulance tomorrow 01/22 at 1000 to [facility]. PARVEEN spoke to Rissa at [facility] who confirms Juli is on her way for bedside assessment. PARVEEN updated Rissa on transport set up for tomorrow and requested they leave a msg regarding bedside assessment as SW off shift in 10 min. Rissa will update Juli as well and then update SW. BF Addendum entered by SIRI Farley 01/21/23 13:35: ADD: Awaiting Juli from [facility] to do bedside assessment later this afternoon. PARVEEN completed [facility] Medicaid Transport request form for cabulance for tomorrow 01/22/23 around 1000 in anticipation of d/c to Assisted Living tomorrow. BF Original Note: DCP Assisted Living Planning PARVEEN called [facility] and spoke to Juli, DNS, and updated on pt and she is reviewing the clinicals faxed Saturday and Saturday and states since pt has a change in status (was w/c prior to surgery and now assist with FWW) she will need to do bedside assessment and unfortunately cannot assess until around 1500 today. PARVEEN discussed barriers to SNF placement and having [facility] referral already in place. Juli confirms they could not accept today but tomorrow if they feel they can meet his needs. PARVEEN called [facility] and [facility] in [facility] and confirmed they still do not have beds until mid to late this week. PARVEEN called pt's Guardian Bhumi and updated on above and she is in agreement and also confirms that pt has Medicaid Transport benefits that he will need to use for transport back to [facility] at discharge. Plan: SW to follow closely for bedside assessment by RN from [facility] at 1500 today to confirm plan of return [place] [facility] [place] and medicaid transport cabulance at d/c likely . SIRI Farley
--- NOTE | 2023-01-21 11:00 | PT.IPTN ---
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) Unspecified intracranial injury with loss of consciousness status unknown, initial encounter (01/15/23) Presence of unspecified artificial hip joint (01/15/23) Surgery Performed Operation Date: 01/15/23 14:15 Actual Procedures p Total Hip Arthroplasty(Right) - lAexus Arnold MD Physical Therapy Treatment Note M2 PT-IP Current Condition Start: 01/16/23 11:44 Freq: NEEDED Status: Active Protocol: Document 01/17/23 07:52 SP (Rec: 01/17/23 11:58 SP [id number]) Physical Therapy Current Condition Current Condition Evaluation Date 01/16/23 Treatment Diagnosis s/p L posterior MARIA ALEJANDRA Onset Date 01/15/23 M3 PT-IP Subjective Start: 01/16/23 11:44 Freq: NEEDED Status: Active Protocol: Document 01/21/23 11:28 TS (Rec: 01/21/23 11:57 TS [id number]) Subjective Physical Therapy Visit Type Type Treatment Note Visit Start Time 11:00 Visit Stop Time 11:20 Total Visit Minutes 20 Number of INTERIOR SURFACE INSULATION WORKER Visits 10 Physical Therapy Visit Comments Patient Comments Pt continues to be concerned about swelling in R knee, has some burning in R hip. Therapy Pain Assessment Pain When Pain Assessed During Mobility Pain Present Pain Present Pain Reported Location Right Hip Description Burning Pain Behaviors Facial Grimacing,Moaning, Wincing M4 PT-IP Mobility and Gait Start: 01/16/23 11:44 Freq: NEEDED Status: Active Protocol: Document 01/21/23 11:28 TS (Rec: 01/21/23 11:57 TS [id number]) PT-Transfer Assessment Sit to and From Stand Sit to and from Stand Standby Assistance,Use of Upper Extremities Equipment Transfer Assistive Device Gait Belt,Front Wheeled Walker Orthotic/Prosthetic Devices or Brace: No Transfers Transfer Destination Wheelchair Transfer Technique Stand Step Pivot Transfer Ability Level of Assist Standby Assistance Comments Mobility Comments Pt found resting in chair, agreeable to PT session. Pt recalled 2/3 hip precautions, conitnues to not recal internal rotation. Pt performed sit to stand x1 SBA leaning heavily on FWW with BUE support, requires cues for hip flexion precaution. Stand step pivot transfer to wheel chair SBA with flexed posture and TTWB on RLE. Pt propelled self with BUE in w/c ~300' SBA in hallway and returned to room. Stand step pivot transfer back into chair SBA, providing cues for decreased hip flexion. Pt was left in chair with call light nearby, chair alarm on, RN notified, pt requesting shower. Gait Assessment Comments Gait Comments Stand step pivot trasnfer x2 to w/c. See mobiltiy comments. PT-Balance Assessment Sitting Balance and Reactions Static Sitting Balance Ability Good Dynamic Sitting Balance Ability Fair Standing Balance and Reactions Static Standing Balance Ability Fair Dynamic Standing Balance Ability Poor Device Used FWW Comments Other Balance Tests/Deviations/Treatment Pt stands with very flexed : posture, leaning heavily with BUEs on FWW. Pt continues to TTWB possibly due to RLE flexion contracture. M5 PT-IP Objective Assessments Start: 01/16/23 11:44 Freq: NEEDED Status: Active Protocol: Document 01/16/23 11:44 ES (Rec: 01/16/23 12:00 ES [id number]) Orientation Orientation/Cognition Level of Alertness Alert Orientation Name,Age,Birthday,Month,Year, Place Language Function Ability No Deficits Noted Safety Awareness Decreased Safety Awareness Memory Description Short Term Impaired Gross Range of Motion Upper Extremity ROM Assessment Within Functional Limits Lower Extremity ROM Assessment Bilaterally Impaired Impairments R hip limited 2/2 precautions. R knee appears to bed contracted to ~20 degrees. B ankle mobility limited. Strength Upper Extremity Strength Assessment Within Functional Limits Lower Extremity Strength Assessment Bilaterally Impaired Comments Strength Comments R LE grossly 3-/5. L LE grossly 4/5. Coordination Assessment Gross Coordination Gross Coordination WNL M6 PT-IP Treatment Start: 01/16/23 11:44 Freq: NEEDED Status: Active Protocol: Document 01/21/23 11:28 TS (Rec: 01/21/23 11:57 TS [id number]) Physical Therapy Treatment Education Education Provided Precautions,Weight Bearing Status,Post-Op Packet,Safety Other Treatments Other Treatment Performed Recalled 2/3 precautions No Addcution and no Flexion pre- treatment and post treatment. M7 PT-IP Assessment and Plan Start: 01/16/23 11:44 Freq: NEEDED Status: Active Protocol: Document 01/21/23 11:28 TS (Rec: 01/21/23 11:57 TS [id number]) PT Summary Assessment and Plan Potential Rehabilitation Potential Good Status of Condition at Evaluation Stable Summary Impairments Pain,ROM,Strength,Balance, Cognition,Bed Mobility, Transfers,Gait,Activity Tolerance Progress Towards Goals Slow Progress due to Pain,Slow Progress due to Activity Tolerance,Slow Progress - Other Assessment Summary Pt continues to recall 2/3 hip precaution, unable to recall internal rotation. He performed sit to stand x2 SBA leaning heavily flexed with UEs on FWW, requires heavy cueing for hip flexion precaution. He continues to propell self in W/C in hallway SBA, demonstrates good management of FWW. He remains a fall risk during stand step pivot transfers due to poor safety awareness and balance with TTWB on RLE due to flexion contracture/pain. PT recommends SNF rehab but at the very least home with 24/7 assist available with HHPT. Goals Bed Mobility Goal Standby Assistance Transfer Goal Standby Assistance Gait Goal Contact Guard Assistance Gait Distance 50 Other Goals Patient will be able to recall posterior hip precautions without cues. Patient will be able to propel self in w/c with UE's/LE's without breaking hip precautions without cues. Days to Meet Goals 3 Frequency of Treatment Frequency Of Treatment Twice a Day Treatment Plan Physical Therapy Treatment Plan Bed Mobility Training,Transfer Training,Gait Training, Therapeutic Exercise,Balance Retraining,Post Op Education, Discharge Planning,Hot or Cold Pack Other Recommendations and Next Treatment Progress transfers, gait with Focus FWW, review precautions and HEP. 1 step cues. Continue to use w/c. Precautions Posterior Hip Precautions No Hip Flexion > 90 degrees,No Hip Internal Rotation,No Hip Adduction Weight Bearing Status Weight Bearing Status Weight Bear as Tolerated Recommendations To Nursing Amount of Assist Needed Independent Discharge Recommendations PT Discharge Recommendations Home with 24/7 Assist Available,Home Health,SNF Rehab Transportation Needs at Discharge Wheelchair/Cabulance
--- NOTE | 2023-01-21 12:56 | PM.PNPO.1 ---
Subjective Subjective Date Patient Seen: 01/21/23 Time Patient Seen: 07:20 Interval history: Kemal states he is doing well this morning and having less pain than previous days. Today he complains of mild right calf pain and tightness as well as itchiness to the bottom of his foot. He denies fever, chills, chest pain, shortness of breath. Exam Vital Signs (past 8 hours): - 01/21/23 08:23 01/21/23 08:31 01/21/23 08:31 Temperature 97.7 F Pulse Rate 88 98 H 98 H Respiratory Rate 16 Blood Pressure 132/77 132/77 132/77 Pulse Oximetry 97 01/21/23 10:40 Temperature Pulse Rate 89 Respiratory Rate Blood Pressure Pulse Oximetry Fraction of Inspired Oxygen 21 SaO2/FiO2 Ratio 457 Oxygen Delivery Method Room Air Oxygen Flow Rate 0 Narrative Exam Narrative: Pleasant 67-year-old male. Mentation at baseline. Awake, alert, and oriented to person, place, time, and situation. Right hip Aquacel bandage clean, dry, and intact. Sensation diminished in right foot. Strength intact to bilateral lower extremities-patient attempting to get up out of bed as we speak. Right calf with increased circumference compared to left calf, mild erythema, firmness and tenderness to palpation. Bilateral feet with continuing edema though improved. Objective Labs 01/18/23 08:19 01/18/23 08:19 [facility] Medical History Anoxic brain damage Asthma Atrial fibrillation and flutter CAD (coronary artery disease) COPD (chronic obstructive pulmonary disease) GERD (gastroesophageal reflux disease) History of developmental delay HLD (hyperlipidemia) HTN (hypertension) Melena Osteoarthritis PAF (paroxysmal atrial fibrillation) Proctocolitis (11/2022) Suspected sleep apnea TBI (traumatic brain injury) Surgical History History of nasal surgery Hx of hernia repair Social History household members: none Smoking Status: Former smoker alcohol intake: never Assessment & Plan Post-op Postoperative Procedures: Procedures Operation Date: 01/15/23 14:15 Actual Procedure Side Surgeon p Total Hip Arthroplasty Right Alexus Arnold MD Postoperative day: 6 Postoperative status: doing well Postoperative status narrative: Patient is doing well considering comorbidities. RLE venous ultrasound negative for DVT. We will continue to monitor and treat with DVT prophylaxis. Postoperative plan: ambulate and discharge Postoperative plan narrative: Patient to continue working with physical therapy. Multimodal pain regimen and DVT prophylaxis. Plan for discharge to adult family home with home health physical therapy when accepted by facility, hopefully tomorrow. Quality VTE Deep Vein Thrombosis/Pulmonary Embolism Present on Admission: No
[2023-01-21] MEDS: polyethylene glycoL 3350 17 GM POWD.PACK PO (13:57)
--- NOTE | 2023-01-21 14:24 | OT.IP.TRT ---
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) Unspecified intracranial injury with loss of consciousness status unknown, initial encounter (01/15/23) Presence of unspecified artificial hip joint (01/15/23) Surgery Performed Operation Date: 01/15/23 14:15 Actual Procedures p Total Hip Arthroplasty(Right) - Alexus Arnold MD Occupational Therapy Treatment Note M2 OT-IP Current Condition Start: 01/17/23 16:52 Freq: Status: Active Protocol: Document 01/17/23 15:25 CCC (Rec: 01/17/23 17:19 CCC [id number]) Occupational Therapy Current Condition Current Condition Evaluation Date 01/17/23 Treatment Diagnosis S/p R MARIA ALEJANDRA Diagnosis Onset Date 01/15/23 Post Operative Precautions Posterior Hip Precautions No Hip Flexion > 90 degrees,No Hip Internal Rotation,No Hip Adduction Weight Bearing Status Weight Bearing Status Weight Bear as Tolerated M3 OT- IP Subjective and Pain Start: 01/17/23 16:52 Freq: Status: Active Protocol: Document 01/21/23 14:29 CGR (Rec: 01/21/23 14:43 CGR [id number]) OT- Subjective Occupational Therapy Visit Type Type Progress Note Visit Start Time 13:55 Visit Stop Time 14:24 Total Visit Minutes 29 Notes Pt requesting shower. OT Pain Assessment Pain When Pain Assessed During Mobility Pain Present Pain Present Pain Reported Location Right Knee Scale Used did not rate Pain Behaviors Facial Grimacing Management Techniques Distraction,Modification of Treatment,Re-positioning M4 OT- IP ADL's Start: 01/17/23 16:52 Freq: Status: Active Protocol: Document 01/21/23 14:29 CGR (Rec: 01/21/23 14:43 CGR [id number]) OT [id number] General Evaluation Self-Feeding Ability Independent Comments OT Self-Feeding Comments Pt drinks coffee with IND. OT ADL-Grooming General Evaluation Grooming Ability Standby Assistance Areas Needing Assistance Face Washing Comments OT Grooming Comments in shower OT ADL-Oral Care Comments Oral Care Comments not performed OT ADL-Dressing General Eval Upper Body Dressing Ability Minimal Assistance Lower Body Dressing Ability Total Assistance Areas Needing Assistance Socks Comments OT Dressing Comments hospital gown and socks after shower OT ADL-Toileting General Evaluation Toileting Ability Standby Assistance Comments OT Toileting Comments Pt attempted to have BM seated on toielt. OT ADL-Bathing Bathing Type Bathing Type Shower General Evaluation Bathing Ability Moderate Assistance Areas Needing Assistance Retrieving/Setting Up Items, Wash/Dry Back,Wash/Dry Lower Extremities Devices Bathing Equipment Shower Chair with Arms,Grab Bars Comments OT Bathing Comments Pt needed VC for safety throughout session. M5 OT- IP IADL's Start: 01/17/23 16:52 Freq: Status: Active Protocol: Document 01/17/23 15:25 [facility] (Rec: 01/17/23 17:19 [facility] [id number]) OT-Instrumental Activities of Daily Living Home Safety Awareness Awareness of Need for Assistance at Home Decreased Awareness Home Safety Comments Pt needign increased time to process and follow directions andn unable to recall his hip precautions. Medication Management Medication Management Caregiver Administers Money Management Money Management Caregiver Provides Assistance Meal Preparation Meal Preparation Caregiver Provides Assist Rehab Therapist Rehab Therapist Caregiver Provides Assist M6 OT- IP Functional Cognition Start: 01/17/23 16:52 Freq: Status: Active Protocol: Document 01/21/23 14:29 CGR (Rec: 01/21/23 14:43 R [id number]) Cognitive Factors Limiting Selfcare Function Cognitive Ability Level of Alertness Alert Patient Orientation Name,Place,Situation Attention Span Ability Unable to Focus,Unable to Sustain Attention Ability to Follow Commands Able to Follow One Step Commands with Increased Time, Able to Follow One Step Commands with Repetition Cognitive Comments Cognitive Assessment Comments Per notes, pt is at his baseline for cognition. M7 OT- IP Mobility and Balance Start: 01/17/23 16:52 Freq: Status: Active Protocol: Document 01/21/23 14:29 CGR (Rec: 01/21/23 14:43 R [id number]) OT-Transfer Assessment Sit to and From Stand Sit to and from Stand Contact Guard Assistance, Minimal Assistance Transfers Transfer Ability Minimal Assistance Technique Transfer Destination Bedside Commode,Chair,Shower Stall Transfer Technique Stand Step Pivot Devices Transfer Assistive Devices Gait Belt,Front Wheeled Walker Comments Mobility Comments Pt ambulated from chair to shower by choice. Pt needs VC to roll the walker vs lift it. Given safety of his mobility, w/c was brought into the bathroom for transfer back to chair after shower. Pt was able to waffle machine operator the shower for pericare but needs VC for safety and hand placement. OT- Balance Assessment Sitting Balance and Reactions Static Sitting Balance Ability Good Dynamic Sitting Balance Ability Fair M8 OT- IP Objective Assessments Start: 01/17/23 16:52 Freq: Status: Active Protocol: Document 01/17/23 15:25 CCC (Rec: 01/17/23 17:19 CCC [id number]) OT-Muscle Tone Assessment Comments Muscle Tone Comments Noted Right LE spasms, able to notify nursing in addition to pt's complaining of having a itchy back. M9 OT- IP Assessment and Plan Start: 01/17/23 16:52 Freq: Status: Active Protocol: Document 01/21/23 14:29 CGR (Rec: 01/21/23 14:43 CGR [id number]) OT Summary Assessment and Plan Potential Rehabilitation Potential Good Analytic Complexity at Evaluation Low Summary OT Impairments Pain,Strength,Balance, Functional Cognition, Functional Mobility,Dressing, Toileting,Bathing,Toilet Transfers,Shower Transfers, Activity Tolerance Progress Towards Goals Progressing Toward Goals Assessment Summary Pt performed shower on this date. Pt with poor safety awareness and ability to follow his hip precautions but follows commands and participates with self care. Pt states he would rather the occupational therapist perform the bathing for him but performs himself when instructed. Pt appears to be at or near his baseline as reported by the patient with the exception of increased pain and now having hip precautions. Goals Self-Feeding Goal Independent Grooming Goal Independent Dressing Goal Moderate Assistance Toileting Goal Moderate Assistance Bathing Goal Moderate Assistance Toilet Transfer Goal Contact Guard Assistance Shower Transfer Goal Minimal Assistance Days to Meet Goals 10 Frequency of Treatment Frequency Of Treatment Once a Day Treatment Plan OT Treatment Plan ADL Training,Functional Mobility,Patient/Family Education,Discharge Planning Other Treatment Recommendations and Next [facility] to [facility] with FWW Treatment Focus Discharge Recommendations OT Discharge Recommendations Home with 24/7 Assist Available Other Discharge Recommendations If pt improves and if able to get increased assist from his facility possibly home with 24 /7 available assist but not 1: 1 and home health. Transportation Needs at Discharge Wheelchair/Cabulance
--- NOTE | 2023-01-21 14:46 | DIET.CONS2 ---
Dietary Inpatient Consultation Note Admission Date: 01/15/2023 12:20 RD screened pt for LOS day 6. Pt awaiting placement, delayed discharge. Pts POs 100%, no nutrition needs identified. Diet: 01/15/23 Lunch General (Regular) Diet Diet Modifications: Nutrition Percent Meal Consumed 100% 01/20/23 18:00 Percent Meal Consumed 100% 01/20/23 13:51 Percent Meal Consumed 100% 01/20/23 13:01 Percent Meal Consumed 100% 01/19/23 19:50 Percent Meal Consumed 100% 01/19/23 18:04 Electronically Signed by: Prisca Wellington 01/21/23 14:46 Clinical Dietitian [address] [address]
--- NOTE | 2023-01-21 16:12 | PT.IPTN ---
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) Unspecified intracranial injury with loss of consciousness status unknown, initial encounter (01/15/23) Presence of unspecified artificial hip joint (01/15/23) Surgery Performed Operation Date: 01/15/23 14:15 Actual Procedures p Total Hip Arthroplasty(Right) - Alexus Arnold MD Physical Therapy Treatment Note M2 PT-IP Current Condition Start: 01/16/23 11:44 Freq: NEEDED Status: Active Protocol: Document 01/17/23 07:52 SP (Rec: 01/17/23 11:58 SP [id number]) Physical Therapy Current Condition Current Condition Evaluation Date 01/16/23 Treatment Diagnosis s/p L posterior MARIA ALEJANDRA Onset Date 01/15/23 M3 PT-IP Subjective Start: 01/16/23 11:44 Freq: NEEDED Status: Active Protocol: Document 01/21/23 16:37 TS (Rec: 01/21/23 16:45 TS [id number]) Subjective Physical Therapy Visit Type Type Treatment Note Visit Start Time 16:12 Visit Stop Time 16:34 Total Visit Minutes 22 Notes Employee present from [facility] Number of MOTOR ASSEMBLY SUPERVISOR Visits 11 Physical Therapy Visit Comments Patient Comments Pt continues to be concerned about swelling in R knee, has some burning in R hip. Therapy Pain Assessment Pain When Pain Assessed During Mobility Pain Present Pain Present Pain Reported M4 PT-IP Mobility and Gait Start: 01/16/23 11:44 Freq: NEEDED Status: Active Protocol: Document 01/21/23 16:37 TS (Rec: 01/21/23 16:45 TS [id number]) PT-Transfer Assessment Sit to and From Stand Sit to and from Stand Standby Assistance Equipment Transfer Assistive Device Gait Belt,Front Wheeled Walker Orthotic/Prosthetic Devices or Brace: No Transfers Transfer Destination Wheelchair Transfer Technique Stand Step Pivot Transfer Ability Level of Assist Standby Assistance Comments Mobility Comments Pt found resting in chair, agreeable to PT session. Pt recalled 2/3 hip precautions, continues to not recall internal rotation. Pt performed sit to stand x1 SBA leaning heavily on FWW with BUE support, requires cues for hip flexion precaution. Stand step pivot transfer to wheel chair SBA with flexed posture and TTWB on RLE. Pt propelled self with BUE in w/c ~200' SBA in hallway and returned to room. Stand step pivot transfer back into chair SBA, providing cues for decreased hip flexion. Pt was left in chair with call light nearby, chair alarm on. Gait Assessment Gait Gait Assistance Required: Contact Guard Assist Distance (Feet) 3 Able to Maintain Weight Bearing Status Yes During Gait Assistive Devices Assistive Device Front Wheeled Walker Orthotic/Prosthetic Devices or Brace: No Gait Deviations General Gait Pattern Antalgic,Decreased Stride Length,Decreased Feet Clearance,Flexed Trunk,Wide Based Gait Factors Limiting Gait Function Factors Limiting Gait Function Decreased Strength,Difficulty Following Directions,Limited Range of Motion,Pain,Poor Balance,Poor Safety Awareness Comments Gait Comments Stand step pivot transfer x2 to w/c. See mobility comments. PT-Balance Assessment Sitting Balance and Reactions Static Sitting Balance Ability Good Dynamic Sitting Balance Ability Fair Standing Balance and Reactions Static Standing Balance Ability Fair Dynamic Standing Balance Ability Fair Device Used FWW M5 PT-IP Objective Assessments Start: 01/16/23 11:44 Freq: NEEDED Status: Active Protocol: Document 01/16/23 11:44 ES (Rec: 01/16/23 12:00 ES [id number]) Orientation Orientation/Cognition Level of Alertness Alert Orientation Name,Age,Birthday,Month,Year, Place Language Function Ability No Deficits Noted Safety Awareness Decreased Safety Awareness Memory Description Short Term Impaired Gross Range of Motion Upper Extremity ROM Assessment Within Functional Limits Lower Extremity ROM Assessment Bilaterally Impaired Impairments R hip limited 2/2 precautions. R knee appears to bed contracted to ~20 degrees. B ankle mobility limited. Strength Upper Extremity Strength Assessment Within Functional Limits Lower Extremity Strength Assessment Bilaterally Impaired Comments Strength Comments R LE grossly 3-/5. L LE grossly 4/5. Coordination Assessment Gross Coordination Gross Coordination WNL M6 PT-IP Treatment Start: 01/16/23 11:44 Freq: NEEDED Status: Active Protocol: Document 01/21/23 16:37 TS (Rec: 01/21/23 16:45 TS [id number]) Physical Therapy Treatment Education Education Provided Precautions,Weight Bearing Status,Post-Op Packet,Safety M7 PT-IP Assessment and Plan Start: 01/16/23 11:44 Freq: NEEDED Status: Active Protocol: Document 01/21/23 16:37 TS (Rec: 01/21/23 16:45 TS [id number]) PT Summary Assessment and Plan Potential Rehabilitation Potential Good Status of Condition at Evaluation Stable Summary Impairments Pain,ROM,Strength,Balance, Cognition,Bed Mobility, Transfers,Gait,Activity Tolerance Progress Towards Goals Slow Progress due to Pain,Slow Progress due to Activity Tolerance,Slow Progress - Other Assessment Summary Pt continues to recall 2/3 hip precaution, unable to recall internal rotation. He performed sit to stand x2 SBA leaning heavily flexed with UEs on FWW, requires cueing for hip flexion precaution. He continues to propell self in W/C in hallway ~200' SBA, demonstrates good management of W/C. He remains a fall risk during stand step pivot transfers due to poor safety awareness and balance with TTWB on RLE due to flexion contracture/pain. PT recommends SNF rehab but at the very least home with 24/7 assist available with HHPT. Goals Bed Mobility Goal Standby Assistance Transfer Goal Standby Assistance Gait Goal Contact Guard Assistance Gait Distance 50 Other Goals Patient will be able to recall posterior hip precautions without cues. Patient will be able to propel self in w/c with UE's/LE's without breaking hip precautions without cues. Days to Meet Goals 3 Frequency of Treatment Frequency Of Treatment Twice a Day Treatment Plan Physical Therapy Treatment Plan Bed Mobility Training,Transfer Training,Gait Training, Therapeutic Exercise,Balance Retraining,Post Op Education, Discharge Planning,Hot or Cold Pack Other Recommendations and Next Treatment Progress transfers, gait with Focus FWW, review precautions and HEP. 1 step cues. Continue to use w/c. Precautions Posterior Hip Precautions No Hip Flexion > 90 degrees,No Hip Internal Rotation,No Hip Adduction Weight Bearing Status Weight Bearing Status Weight Bear as Tolerated Recommendations To Nursing Amount of Assist Needed Standby Assistance Discharge Recommendations PT Discharge Recommendations Home with 24/7 Assist Available,Home Health,SNF Rehab Transportation Needs at Discharge Wheelchair/Cabulance
[2023-01-21] MEDS: RIVAROXABAN 10 MG TABLET 20 MG PO (17:02)
[2023-01-21] MEDS: TRAZODONE 50 MG TABLET PO (20:34)
[2023-01-21] MEDS: hydrOXYzine pamoate 25 MG CAPSULE PO (20:35)
[2023-01-22] MEDS: hydrOXYzine pamoate 25 MG CAPSULE PO ×2 (03:06→07:59)
[2023-01-22] MEDS: IBUPROFEN 400 MG TABLET PO ×2 (03:06→06:02)
[2023-01-22] MEDS: OXYCODONE IR 10 MG TABLET PO (03:07)
[2023-01-22] MEDS: ALBUTEROL 2.5 MG/3 ML NEB (ADULT) INH (03:40)
[2023-01-22 04:54] VITALS: BP 104/69; PULSE 74; RESP 18; TEMP 36.5; O2SAT 94
[2023-01-22] MEDS: ACETAMINOPHEN 325 MG TABLET 650 MG PO (06:01)
[2023-01-22] MEDS: CYCLOBENZAPRINE 10 MG TABLET 5 MG PO (06:02)
[2023-01-22] MEDS: OXYCODONE IR 5 MG TABLET PO (06:02)
[2023-01-22 07:53] VITALS: BP 120/88; PULSE 96; RESP 18; TEMP 36.3; O2SAT 94
[2023-01-22] MEDS: FUROSEMIDE 20 MG TABLET PO (07:58)
[2023-01-22] MEDS: lisinopriL 20 MG TABLET PO (07:59)
[2023-01-22] MEDS: DOCUSATE 100 MG CAPSULE PO (07:59)
[2023-01-22] MEDS: METOPROLOL ER 25 MG TABLET PO (07:59)
[2023-01-22] MEDS: GABAPENTIN 300 MG CAPSULE PO (07:59)
[2023-01-22] MEDS: SODIUM CHLORIDE 0.9% FLUSH 10 ML IV (08:05)
[2023-01-22] MEDS: ALBUTEROL/IPRATROPIUM 3 ML AMPUL INH (08:36)
[2023-01-22] MEDS: BUDESONIDE 0.5 MG/2 ML NEB INH (08:36)
[2023-01-22 08:38] VITALS: O2SAT 96
--- NOTE | 2023-01-22 08:58 | CM.DPC ---
DCP Cont: Called over at [facility] to confirm that patient can be accepted. Left a message for Juli, the director. She did return the call, had indicated, she had to confirm acceptance with her director, and can accept. Transportation has already been set up with Britney Frazier, for tile picker at 10:00. Updated nurse, Bailey, and Josefa faxed over orders, pending DC Summary. Called Sylwia at [facility] and let her know that patient is discharging today back to his facility. She will update her team. Patient will be getting RN, P.T, O.T, CLOSET ORGANIZER, and bath aide. Facility may be looking into a higher level facility due to his increasing needs, and can benefit with CLOSET ORGANIZER to assist with this process. P: Patient is discharging back to his assisted living today with tile picker at 10:00, and [facility]. Rhoda Hickey, DAVE/Field Marketing Lead
--- NOTE | 2023-01-22 09:07 | PT.IPTN ---
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) Unspecified intracranial injury with loss of consciousness status unknown, initial encounter (01/15/23) Presence of unspecified artificial hip joint (01/15/23) Surgery Performed Operation Date: 01/15/23 14:15 Actual Procedures p Total Hip Arthroplasty(Right) - Alexus Arnold MD Physical Therapy Treatment Note M2 PT-IP Current Condition Start: 01/16/23 11:44 Freq: NEEDED Status: Active Protocol: Document 01/17/23 07:52 SP (Rec: 01/17/23 11:58 SP [id number]) Physical Therapy Current Condition Current Condition Evaluation Date 01/16/23 Treatment Diagnosis s/p L posterior MARIA ALEJANDRA Onset Date 01/15/23 M3 PT-IP Subjective Start: 01/16/23 11:44 Freq: NEEDED Status: Active Protocol: Document 01/22/23 09:54 TS (Rec: 01/22/23 10:13 TS [id number]) Subjective Physical Therapy Visit Type Type Treatment Note Visit Start Time 09:07 Visit Stop Time 09:30 Total Visit Minutes 23 Physical Therapy Visit Comments Patient Comments Pt continues to be concerned about swelling in R knee, has some burning in R hip. M4 PT-IP Mobility and Gait Start: 01/16/23 11:44 Freq: NEEDED Status: Active Protocol: Document 01/22/23 09:54 TS (Rec: 01/22/23 10:13 TS [id number]) PT-Transfer Assessment Sit to and From Stand Sit to and from Stand Standby Assistance Equipment Transfer Assistive Device Gait Belt,Front Wheeled Walker Orthotic/Prosthetic Devices or Brace: No Transfers Transfer Destination Wheelchair Transfer Technique Stand Step Pivot Transfer Ability Level of Assist Standby Assistance Comments Mobility Comments Pt found resting in chair, agreeable to PT session. Sit to stand x1 SBA with FWW, leans heavily on FWW with BUEs and flexed posture, provided cues for upright posture. Pt ambulated to toilet SBA w/FWW ~6' with flexed posture and TT on RLE. Stand step pivot transfer to w/c SBA, continues to lean heavily forward on FWW. Pt propelled in w/c ~500' in hallway SBA with less fatigue due to smaller w/c. Pt was left in bedside chair with call light nearby, chair alarm on, all needs met. Gait Assessment Gait Gait Assistance Required: Standby Assistance Distance (Feet) 6 Able to Maintain Weight Bearing Status Yes During Gait Assistive Devices Assistive Device Front Wheeled Walker Orthotic/Prosthetic Devices or Brace: No Gait Deviations General Gait Pattern Antalgic,Decreased Stride Length,Decreased Feet Clearance,Flexed Trunk,Wide Based Gait Factors Limiting Gait Function Factors Limiting Gait Function Decreased Strength,Difficulty Following Directions,Limited Range of Motion,Pain,Poor Balance,Poor Safety Awareness Comments Gait Comments See mobility comments. PT-Balance Assessment Sitting Balance and Reactions Static Sitting Balance Ability Good Dynamic Sitting Balance Ability Fair Standing Balance and Reactions Static Standing Balance Ability Fair Dynamic Standing Balance Ability Fair Device Used FWW M5 PT-IP Objective Assessments Start: 01/16/23 11:44 Freq: NEEDED Status: Active Protocol: Document 01/16/23 11:44 ES (Rec: 01/16/23 12:00 ES [id number]) Orientation Orientation/Cognition Level of Alertness Alert Orientation Name,Age,Birthday,Month,Year, Place Language Function Ability No Deficits Noted Safety Awareness Decreased Safety Awareness Memory Description Short Term Impaired Gross Range of Motion Upper Extremity ROM Assessment Within Functional Limits Lower Extremity ROM Assessment Bilaterally Impaired Impairments R hip limited 2/2 precautions. R knee appears to bed contracted to ~20 degrees. B ankle mobility limited. Strength Upper Extremity Strength Assessment Within Functional Limits Lower Extremity Strength Assessment Bilaterally Impaired Comments Strength Comments R LE grossly 3-/5. L LE grossly 4/5. Coordination Assessment Gross Coordination Gross Coordination WNL M6 PT-IP Treatment Start: 01/16/23 11:44 Freq: NEEDED Status: Active Protocol: Document 01/22/23 09:54 TS (Rec: 01/22/23 10:13 TS [id number]) Physical Therapy Treatment Education Education Provided Precautions,Weight Bearing Status,Post-Op Packet,Safety Other Treatments Other Treatment Performed PT continues to recall 2/3 precautions. M7 PT-IP Assessment and Plan Start: 01/16/23 11:44 Freq: NEEDED Status: Active Protocol: Document 01/22/23 09:54 TS (Rec: 01/22/23 10:13 TS [id number]) PT Summary Assessment and Plan Potential Rehabilitation Potential Good Status of Condition at Evaluation Stable Summary Impairments Pain,ROM,Strength,Balance, Cognition,Bed Mobility, Transfers,Gait,Activity Tolerance Progress Towards Goals Slow Progress due to Pain,Slow Progress due to Activity Tolerance,Slow Progress - Other Assessment Summary Pt continues to have poor balance and FWW managment ambulating to toilet this session due to pain and toe touch on RLE. He propelled in his smaller w/c this session with less difficulty/fatigue to ~500' in hallway, maintained hip precautions throughout. He continues to require reminders and cues for flexion hip precaution during sit to stands, he follows single step instructions ~80% of the time. PT recommends home with 24/7 assist available with HHPT. Pt could benefit from possible SNF stay daily skilled therapy. Goals Bed Mobility Goal Standby Assistance Transfer Goal Standby Assistance Gait Goal Contact Guard Assistance Gait Distance 50 Other Goals Patient will be able to recall posterior hip precautions without cues. Patient will be able to propel self in w/c with UE's/LE's without breaking hip precautions without cues. Days to Meet Goals 3 Frequency of Treatment Frequency Of Treatment Twice a Day Treatment Plan Physical Therapy Treatment Plan Bed Mobility Training,Transfer Training,Gait Training, Therapeutic Exercise,Balance Retraining,Post Op Education, Discharge Planning,Hot or Cold Pack Other Recommendations and Next Treatment Progress transfers, gait with Focus FWW, review precautions and HEP. 1 step cues. Continue to use w/c. Precautions Posterior Hip Precautions No Hip Flexion > 90 degrees,No Hip Internal Rotation,No Hip Adduction Weight Bearing Status Weight Bearing Status Weight Bear as Tolerated Recommendations To Nursing Amount of Assist Needed Standby Assistance Discharge Recommendations PT Discharge Recommendations Home with 24/7 Assist Available,Home Health,SNF Rehab Transportation Needs at Discharge Wheelchair/Cabulance
[2023-01-22 09:59] VITALS: BP 120/88
--- NOTE | 2023-01-22 10:15 | PC.NURSE ---
patient is a/o, voices needs. vistaril & ice pack placed for c/o burning on my R leg sitting up in chair for breakfast. WBAT, continues w/ 2-3+ edema to bilat LEs. d/c instructions to return to [place], motor pool driver arrived at 10:00 AM to p/u. patient has own w/c in room, left floor in this. no footrests were available, so human resources assistant manager fashioned a gait belt as a leg rest for the journey to the car. call placed to [facility], to give an updated report on patients current status. scripts given to patient.
--- NOTE | 2023-01-30 17:45 | PM.DS.1 ---
History of Present Illness History of Present Illness Chief complaint: INPT Narrative: Kemal states he is doing well this morning and having less pain than previous days.? Today he complains of mild right calf pain and tightness as well as itchiness to the bottom of his foot.? He denies fever, chills, chest pain, shortness of breath. Discharge Providers Provider Discharge Date: 01/22/23 Consults: 01/11/23 13:55 Consult to Anesthesiology Routine Comment: Consulting Provider: Anesthesiologist Reason for consultation: Surgeon requested re: Multiple medical problems 01/15/23 06:00 Consult to Anesthesiology Routine Comment: Consulting Provider: Anesthesiologist Reason for consultation: Regional block for post operative pain control 01/15/23 13:16 Consult to Pastoral Services Routine Comment: Patient request 01/15/23 14:25 Consult to Pastoral Services Routine Comment: pt request 01/15/23 18:43 Consult to Discharge Planning Routine Comment: Consult to Physical Therapy Evaluate & Treat Comment: Physician Instructions: post op MARIA ALEJANDRA protocol 01/15/23 18:52 Consult to Pastoral Services Routine Comment: post op request 01/17/23 15:10 Consult to Occupational Therapy Evaluate & Treat Comment: Physician Instructions: Evaluate and treat 01/22/23 08:45 Consult to Home Health Routine Comment: Reason For Exam: Home Health RN, P.T, O.T, chan byrd, [employer] Discharge provider: Daphney Espinosa PA-C Summary Hospital Course Discharge Diagnosis: S/p R MARIA ALEJANDRA Hospital Course: Operative Date/Time/Diagnoses Date of procedure: 01/15/23 Time of procedure: 15:30 Pre-op diagnosis: Severe right hip AVN Post-op diagnosis: same Procedure & Clinicians Procedure: Right total hip arthroplasty, posterior Same procedure as scheduled: Yes Indications: The patient has had progressively worsening right hip pain with radiographic changes consistent with arthritis. Non-operative management has failed and the patient has requested total hip replacement. The risks, benefits and alternatives to surgery were discussed with the patient prior to proceeding. Risks discussed included, but were not limited to, failure to relieve pain, leg length discrepancy, dislocation, stiffness, infection, nerve damage, deep venous thrombosis, pulmonary embolism, stroke, coma, heart attack, permanent paralysis and , as well as the potential need for eventual revision of the prosthetic. Surgeon: Alexus Arnold Network Support Specialist: Daphney Espinosa Anesthesia Type: General and Spinal Operative Notes Findings: Severe left hip AVN, various soft acetabulum, significant hip flexion contracture preoperatively, adequate stability Closure Type: primary Specimen(s): none sent Prosthetic devices, grafts, tissues, transplants, or devices: Arnold and nephew size 60 R3 cup, neutral poly liner for 40 mm head, size 16 synergy high offset, 40 +0 Oxinium femoral head,two 6.5 mm screws Blood products transfused: none Exam Vital Signs (past 8 hours): Fraction of Inspired Oxygen 21 SaO2/FiO2 Ratio 447 Oxygen Delivery Method Room Air Oxygen Flow Rate 0 Narrative Exam Narrative: Pleasant 67-year-old male.? Mentation at baseline.? Awake, alert, and oriented to person, place, time, and situation.? Right hip Aquacel bandage clean, dry, and intact.? Sensation diminished in right foot.? Strength intact to bilateral lower extremities-patient attempting to get up out of bed as we speak.? Right calf with increased circumference compared to left calf, mild erythema, firmness and tenderness to palpation.? Bilateral feet with continuing edema though improved. Objective Labs 01/18/23 08:19 01/18/23 08:19 [facility] Medical History Anoxic brain damage Asthma Atrial fibrillation and flutter CAD (coronary artery disease) COPD (chronic obstructive pulmonary disease) GERD (gastroesophageal reflux disease) History of developmental delay HLD (hyperlipidemia) HTN (hypertension) Melena Osteoarthritis PAF (paroxysmal atrial fibrillation) Proctocolitis (11/2022) Suspected sleep apnea TBI (traumatic brain injury) Surgical History History of nasal surgery Hx of hernia repair Social History household members: none Smoking Status: Former smoker alcohol intake: never Discharge Assessment & Plan Assessment and Plan Assessment: Patient is doing well considering comorbidities.? RLE venous ultrasound negative for DVT.? We will continue to monitor and treat with DVT prophylaxis. Plan of Treatment: Patient to continue working with physical therapy.? Multimodal pain regimen and DVT prophylaxis.? Plan for discharge to adult family home with home health physical therapy when accepted by facility, hopefully tomorrow. Discharge Plan Discharge Plan Patient Disposition: Home Health Service Nursing Discharge Comment: follow surgeons discharge instructions. call office if any questions. take meds as ordered. call surgeon for follow up appt w/in 7 days of discharge from hospital. contact surgeon if: increased pain not relieved by pain medications. temp/fever >101.9 not relieved by tylenol or by removing heavy clothing or drinking ice water. signs of infection to surgical site: drainage, pain/swelling/redness under the bandage. monitor vital signs, take pain meds as instructed. take care of yourself and have a great rest of your day! Discharge orders & Medications Prescriptions: New oxycodone 5 mg Tablet 5 mg PO Q4-6H PRN (Reason: Pain, Moderate (4-6)) Qty: 40 0RF hydroxyzine pamoate 25 mg Capsule 25 mg PO Q4HR PRN (Reason: Muscle Spasm) Qty: 40 0RF cyclobenzaprine 10 mg Tablet 5 mg PO Q6HR Qty: 40 0RF acetaminophen 325 mg Tablet 650 mg PO Q6H Qty: 120 0RF Continued ipratropium-albuterol 0.5 mg-3 mg(2.5 mg base)/3 mL Solution For Nebulization 3 ml INHALATION QID trazodone 50 mg Tablet 50 mg PO BEDTIME hydrocodone-acetaminophen 5-325 mg Tablet 1 tab PO Q8H PRN (Reason: Pain) lisinopril 20 mg Tablet 20 mg PO DAILY omeprazole 40 mg Capsule,Delayed Release(Dr/Ec) 40 mg PO DAILY simvastatin 20 mg Tablet 20 mg PO QPM buspirone 10 mg Tablet 10 mg PO DAILY gabapentin 300 mg Capsule 300 mg PO TID budesonide 0.5 mg/2 mL Suspension For Nebulization 0.5 mg INHALATION DAILY furosemide 20 mg Tablet 20 mg PO DAILY metoprolol succinate 25 mg Tablet Extended Release 24 Hr 25 mg PO DAILY albuterol sulfate 90 mcg/actuation Hfa Aerosol Inhaler 2 puff INHALATION Q4-6H PRN (Reason: Wheezing) escitalopram oxalate 5 mg Tablet 5 mg PO DAILY Xarelto 20 mg Tablet 20 mg PO QPM Rx Instructions: must administer with evening meal melatonin 10 mg Tablet 10 mg PO BEDTIME PRN (Reason: Sleep) Discontinued ibuprofen 800 mg Tablet 800 mg PO Q8H PRN (Reason: Pain) Follow up/Referrals: Alexus Arnold MD [Physician] - As previously scheduled (Follow up w/ Milind Orozco PA-C, on 01/29/2023 @ 3:10 pm at [facility] office in [place].) Diet/Activity/Treatments Diet: Diet as Tolerated Activity: Weightbearing as tolerated to right hip. Posterior hip precautions. Cold/Heat Therapy: Ice to hip as needed for pain. Skin/Wound/Dressing Care Report to your healthcare provider any signs of infection, such as:: chills, fever, night sweats, unusual drainage and unusual redness Visit Report/Discharge Packet Instructions: DI for Hip Replacement, How to Prevent Falls, Oxycodone Discharges patient from system. Discharge Date/Time: 01/22/23 10:15 Quality VTE Deep Vein Thrombosis/Pulmonary Embolism Present on Admission: No
== END 2023-01-22 10:15 | disposition home health service (06) | DRG 470 ==
PROVIDERS: Physician Assistant; Admitting Provider Orthopaedic Surgery; Referring Provider Orthopaedic Surgery; Visit Provider Orthopaedic Surgery
PROC: 0SR90JZ Replacement of Right Hip Joint with Synthetic Substitute, Open Approach (ICD-10-PCS; CPT 27130; principal; 2023-01-15 14:15)
DX: M87.851 Other osteonecrosis, right femur (principal); E87.1 Hypo-osmolality and hyponatremia; I48.91 Unspecified atrial fibrillation; I10 Essential (primary) hypertension; E78.5 Hyperlipidemia, unspecified; K21.9 Gastro-esophageal reflux disease without esophagitis; Z20.822 Contact with and (suspected) exposure to COVID-19; Z87.891 Personal history of nicotine dependence; Z79.01 Long term (current) use of anticoagulants
CPT/HCPCS: 36415; 36592; 72170; 73502; 80053; 82962; 85014; 85018; 85027; 87635; 93971; 94640; 94762; 97110; 97116; 97163; 97165; 97530; 97535; C1776; C9803; C9290; J0171; J0690; J1100; J1170; J1200; J2250; J2274; J2405; J2704; J3010; J7613